=== PATIENT | female | born 1950 | race Caucasian/White ===

== ENCOUNTER → 2016-08-06 | Outpatient (CLI) | payer MEDICARE, MEDICAID | END | disposition home or self-care (01) | LOC: YCFC.O 10:44 | PROVIDERS: ATTEND Nurse Practitioner Family | DX: I10 Essential (primary) hypertension (principal); E11.9 Type 2 diabetes mellitus without complications; D64.9 Anemia, unspecified; E78.5 Hyperlipidemia, unspecified ==

== ENCOUNTER → 2016-08-12 | Outpatient (CLI) | payer MEDICARE, OTHER | LOC: MAMMO 09:21 | PROVIDERS: ATTEND Nurse Practitioner Family | DX: Z12.31 Encounter for screening mammogram for malignant neoplasm of breast (principal) ==

== ENCOUNTER 2017-05-27 11:12 | Emergency (ER) | payer OTHER, MEDICAID ==
[2017-05-27] MEDS ORDERED: FUROSEMIDE INJ 40 MG/4 ML VIAL IV ONE (11:43)
--- NOTE | 2017-05-27 12:08 | ED.PDOC ---
History of Present Illness - General Chief Complaint: Cardiovascular Problem Stated Complaint: Shortness of breath Time Seen by Provider: 05/27/17 11:26 - History of Present Illness Initial Comments: 66 Y/O FEMALE, C/O SOB, X 2 WEEKS, INTERMITTENT, WORSE WITH PHYSICAL ACTIVITY, GETTING WORSE, MODERATE. (+) PEDAL EDEMA, OCC COUGH, OCC DIARRHEA, SINUS CONGESTION. DENIES FEVER, CHEST PAIN, NO N/V, NO ABD PAIN. Allergies/Adverse Reactions: Allergies NO KNOWN ALLERGY Allergy (Unverified 09/25/14 15:08) Home Medications: Ambulatory Orders Bisoprolol & Hydrochlorothiazi [Bisoprolol Fumarate/Oneco 10-6.25 mg] 2 tab PO DAILY 09/25/14 Diclofenac Sodium [Diclofenac Sodium Dr] 75 mg PO DAILY 05/27/17 Insulin Lispro [Humalog Kwikpen] 0 units SC QID PRN 05/27/17 Losartan Potassium [Losartan Potassium] 50 mg PO DAILY 05/27/17 Metformin HCl [Metformin HCl] 1,000 mg PO BID 05/27/17 Pravastatin Sodium [Pravastatin Sodium] 20 mg PO DAILY 05/27/17 Review of Systems - Review of Systems Constitutional: Denies: chills, diaphoresis, fever EENTM: States: no symptoms reported Respiratory: States: cough, short of breath. Denies: orthopnea, stridor, wheezing Cardiology: States: edema. Denies: chest pain, palpitations, syncope Gastrointestinal/Abdominal: States: diarrhea. Denies: abdominal pain, constipation, nausea, vomiting Genitourinary: States: no symptoms reported Musculoskeletal: Denies: back pain, joint pain, muscle pain, muscle stiffness, neck pain Skin: States: no symptoms reported Neurological: States: no symptoms reported Endocrine: States: no symptoms reported Hematologic/Lymphatic: States: no symptoms reported Past Medical History (General) - Patient Medical History Hx Seizures: No Hx Stroke: No Hx Asthma: Yes Hx of COPD: Yes Hx Cardiac Disorders: Yes - cholesterol Hx Congestive Heart Failure: No Hx Pacemaker: No Hx Hypertension: Yes Hx Diabetes: Yes Hx MRSA: No - Vaccination History Hx Influenza Vaccination: No Hx Pneumococcal Vaccination: No - Social History Hx Tobacco Use: Yes - Quit 2008 Hx Alcohol Use: Yes Hx Substance Use: No Hx Physical Abuse: No Hx Emotional Abuse: No - Female History Patient : No Family Medical History - Family History Mother Family History: No Known Father Living Status: Hx Family;Other: Possible TB Physical Exam - Physical Exam General Appearance: Alert, No apparent distress Eye Exam: bilateral normal Ears, Nose, Throat: normal ENT inspection, normal pharynx Neck: non-tender, full range of motion, supple, normal inspection Respiratory: chest non-tender, no respiratory distress, no accessory muscle use , other - OCC CRACKLES Cardiovascular/Chest: normal peripheral pulses, regular rate, rhythm, no gallop , no murmur Gastrointestinal/Abdominal: normal bowel sounds, non tender, soft, no organomegaly, no pulsatile mass Back Exam: normal inspection, no CVA tenderness Extremity: normal range of motion, non-tender, pedal edema - +2 Neurologic: video coordinator II-XII nml as tested, no motor/sensory deficits, normal mood/ affect, oriented x 3 Skin Exam: normal color, warm/dry Lymphatic: no adenopathy Progress - Progress Progress: 05/27/17 13:38 DIURESING AFTER LASIX, STILL FEELS SOB. WILL TRANSFER TO - EKG/XRAY/CT EKG: Changed from - 11/24/15, LBBB IS A NEW FINDING Comments: NSR 76X', AQRS: -64, QTc 536, LBBB NSSTT CHANGES Xray Comments: CARDIOMEGALY, INCREASED BVM (PRELIMINARY) - Consult/PCP Time Called: 13:15 Consult/PCP: DR DAVIES ([facility]) Consult Reason/Comments: WILL ACCEPT Departure - Departure Clinical Impression: Left bundle branch block (LBBB) on electrocardiogram Congestive heart failure (CHF) Qualifiers: Congestive heart failure type: systolic Congestive heart failure chronicity: acute Qualified Code(s): I50.21 - Acute systolic (congestive) heart failure Diabetes mellitus Qualifiers: Diabetes mellitus type: type 2 Diabetes mellitus complication status: without complication Disposition: Transfer to Hospital Condition: Good Departure Forms: ED Discharge - Pt. Copy, Patient Portal Self Enrollment Instructions: DI for Chest Pain Referrals: Ese Valencia STUCCO APPLICATOR [Primary Care Provider] - 1-2 Weeks Home Medications: Ambulatory Orders Bisoprolol & Hydrochlorothiazi [Bisoprolol Fumarate/Oneco 10-6.25 mg] 2 tab PO DAILY 09/25/14 Diclofenac Sodium [Diclofenac Sodium Dr] 75 mg PO DAILY 05/27/17 Insulin Lispro [Humalog Kwikpen] 0 units SC QID PRN 05/27/17 Losartan Potassium [Losartan Potassium] 50 mg PO DAILY 05/27/17 Metformin HCl [Metformin HCl] 1,000 mg PO BID 05/27/17 Pravastatin Sodium [Pravastatin Sodium] 20 mg PO DAILY 05/27/17
[2017-05-27] MEDS ORDERED: SODIUM CHLORIDE 0.9% 1000ML 1,000 ML IVS ONE (12:43)
--- NOTE | 2017-05-27 14:32 | RAD ---
EXAM DESCRIPTION: Ankle,Left 3 Views CLINICAL HISTORY: 66 years Female, PAIN, SWELLING COMPARISON: Radiographs of the chest on the same visit. TECHNIQUE: Images AP lateral and patellar sunrise right knee FINDINGS: Significant medial compartment joint space loss with marginal spurs subchondral sclerosis and radiolucency. Lateral joint space is maintained. Also marginal spurs. Minimal medial subluxation of the femur on tibia. Anterior and posterior tibial marginal spurs. Patellofemoral marginal spurs. Mild suprapatellar effusion. No fracture. Otherwise decreased bone density. Posterior vascular calcifications. IMPRESSION: Tricompartmental osteoarthritis affecting the medial compartment more severely than the patellofemoral compartment. Minimal femoral subluxation consistent with internal derangement. Suprapatellar effusion. No fracture. Electronically signed by: Jules Zhang MD 05/27/2017 2:30 PM CDT
--- NOTE | 2017-05-27 14:35 | RAD ---
EXAM DESCRIPTION: Chest,1 View CLINICAL HISTORY: COUGH COMPARISON: 2 view chest x-ray 09/25/2014. TECHNIQUE: PA, lateral views. FINDINGS: Lungs: Mild hyperinflation. Prominent bilateral interstitial markings with no consolidation. Minimal perihilar peribronchial wall thickening. Pleural spaces: No effusion or pneumothorax bilaterally. Heart: Mild cardiomegaly. Pulmonary Vascularity: Not increased. Mediastinum: Not widened. Aorta: Minimal atherosclerotic changes. Bony Thorax/Spine: No acute bony thoracic abnormalities. Disc space narrowing at multiple levels and endplate ridging. IMPRESSION: Emphysematous changes in the lungs with no acute infiltrate. Mild cardiomegaly but pulmonary vascularity shows no congestion. Stable since chest x-ray August 2014. Electronically signed by: Jules Zhang MD 05/27/2017 2:33 PM CDT
[2017-05-27 15:00] VITALS: BP 181/85; TEMP 97.9; O2SAT 93
== END 2017-05-27 14:50 | disposition short-term general hospital (02) ==
LOC: ER 11:12
DX: I44.7 Left bundle-branch block, unspecified (principal); I11.0 Hypertensive heart disease with heart failure; I50.21 Acute systolic (congestive) heart failure; E11.9 Type 2 diabetes mellitus without complications; J44.9 Chronic obstructive pulmonary disease, unspecified; Z87.891 Personal history of nicotine dependence; Z79.4 Long term (current) use of insulin; Z79.899 Other long term (current) drug therapy

== ENCOUNTER → 2017-05-27 | Outpatient (CLI) | payer OTHER, MEDICAID ==
--- NOTE | 2017-05-27 14:40 | RAD ---
EXAM DESCRIPTION: Knee, right, 3 views CLINICAL HISTORY: 66 years Female, PAIN, SWELLING COMPARISON: Radiographs of the chest on the same visit. TECHNIQUE: Images AP lateral and patellar sunrise right knee FINDINGS: Significant medial compartment joint space loss with marginal spurs subchondral sclerosis and radiolucency. Lateral joint space is maintained. Also marginal spurs. Minimal medial subluxation of the femur on tibia. Anterior and posterior tibial marginal spurs. Patellofemoral marginal spurs. Mild suprapatellar effusion. No fracture. Otherwise decreased bone density. Posterior vascular calcifications. IMPRESSION: Tricompartmental osteoarthritis affecting the medial compartment more severely than the patellofemoral compartment. Minimal femoral subluxation consistent with internal derangement. Suprapatellar effusion. No fracture. Electronically signed by: Jules Zhang MD 05/27/2017 2:37 PM CDT
--- NOTE | 2017-05-27 14:44 | RAD ---
EXAM DESCRIPTION: Chest, 2 Views CLINICAL HISTORY: COUGH COMPARISON: 2 view chest x-ray 09/25/2014. TECHNIQUE: PA, lateral views. FINDINGS: Lungs: Mild hyperinflation. Prominent bilateral interstitial markings with no consolidation. Minimal perihilar peribronchial wall thickening. Pleural spaces: No effusion or pneumothorax bilaterally. Heart: Mild cardiomegaly. Pulmonary Vascularity: Not increased. Mediastinum: Not widened. Aorta: Minimal atherosclerotic changes. Bony Thorax/Spine: No acute bony thoracic abnormalities. Disc space narrowing at multiple levels and endplate ridging. IMPRESSION: Emphysematous changes in the lungs with no acute infiltrate. Mild cardiomegaly but pulmonary vascularity shows no congestion. Stable since chest x-ray August 2014. Electronically signed by: Jules Zhang MD 05/27/2017 2:42 PM CDT
== END ==
LOC: YCFC.O 08:13
PROVIDERS: ATTEND Nurse Practitioner Family
DX: M17.11 Unilateral primary osteoarthritis, right knee (principal); R06.02 Shortness of breath; R60.0 Localized edema

== ENCOUNTER → 2017-12-26 | Outpatient (CLI) | payer OTHER, MEDICAID | LOC: YCFC.O 10:37 | PROVIDERS: ATTEND Nurse Practitioner Family | DX: R30.0 Dysuria (principal) ==

== ENCOUNTER → 2018-01-25 | Outpatient (CLI) | payer OTHER, MEDICAID | LOC: YCFC.O 14:14 | PROVIDERS: ATTEND Nurse Practitioner Family | DX: R06.02 Shortness of breath (principal) ==

== ENCOUNTER 2018-03-14 13:36 | Emergency (ER) | payer OTHER, MEDICAID ==
--- NOTE | 2018-03-14 14:13 | RAD ---
EXAM DESCRIPTION: Chest,1 View CLINICAL HISTORY: 67 years Female, dyspnea COMPARISON: Chest radiograph 05/27/2017 TECHNIQUE: Single frontal view of the chest. IMPRESSION: Cardiac silhouette is stably enlarged. Aorta is partially calcified. Lungs appear mildly hyperexpanded. There is mild airspace opacification within the medial right lower lung which may represent pneumonia versus aspiration. No pleural effusion or pneumothorax. Thoracic spondylosis. 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
[2018-03-14] MEDS: NITROGLYCERIN 2% 1 GM UD TOP ONE (14:25)
[2018-03-14] MEDS: ASPIRIN (CHEWABLE) 81 MG TAB PO ONE (14:26)
--- NOTE | 2018-03-14 14:29 | ED.PDOC ---
History of Present Illness - General Chief Complaint: Respiratory Problem Stated Complaint: shortness of breath,chest pressure Time Seen by Provider: 03/14/18 13:47 Source: patient Exam Limitations: no limitations - History of Present Illness Initial Comments: Patient presents with chest pain for 6 hours. It is midsternal and "tight" in nature. It is constant with no particular context. It is worse with sitting up and better with lying down. She has had previous episodes but they were much milder and of shorter duration. The pain is non-radiating and has improved since onset. She also has dyspnea but says that she has had that since receiving 3 stents 9 months ago. She doesn't think that she has had an AMI. No other complaints. Timing/Duration: 4-6 hours Severity: mild Improving Factors: rest Worsening Factors: movement Associated Symptoms: shortness of breath Allergies/Adverse Reactions: Allergies NO KNOWN ALLERGY Allergy (Unverified 09/25/14 15:08) Home Medications: Ambulatory Orders Bisoprolol & Hydrochlorothiazi [Bisoprolol Fumarate/[place]bury 10-6.25 mg] 2 tab PO DAILY 09/25/14 Diclofenac Sodium [Diclofenac Sodium Dr] 75 mg PO BID 05/27/17 Insulin Lispro [Humalog Kwikpen] 0 units SC QID PRN 05/27/17 Losartan Potassium 50 mg PO DAILY 05/27/17 Metformin HCl 1,000 mg PO BID 05/27/17 Pravastatin Sodium 20 mg PO DAILY 05/27/17 Amlodipine Besylate 5 mg PO BEDTIME 03/14/18 Aspirin [Aspirin Regimen Low Dose/] 81 mg PO DAILY 03/14/18 Atorvastatin Calcium 40 mg PO BEDTIME 03/14/18 Carvedilol 25 mg PO BID 03/14/18 Chlorthalidone 12.5 mg PO DAILY 03/14/18 Multiple Vitamin [Multivitamins] 1 cap PO DAILY 03/14/18 Naproxen [Naprosyn] 500 mg PO BID 03/14/18 Ticagrelor [Brilinta] 90 mg PO BID 03/14/18 Review of Systems - Review of Systems Constitutional: States: no symptoms reported EENTM: States: no symptoms reported Respiratory: States: see HPI Cardiology: States: see HPI Gastrointestinal/Abdominal: States: no symptoms reported Genitourinary: States: no symptoms reported Musculoskeletal: States: no symptoms reported Skin: States: no symptoms reported Neurological: States: no symptoms reported Endocrine: States: no symptoms reported Hematologic/Lymphatic: States: no symptoms reported Past Medical History (General) - Patient Medical History Hx Seizures: No Hx Stroke: No Hx Asthma: Yes Hx of COPD: Yes Hx Cardiac Disorders: Yes - cholesterol Hx Congestive Heart Failure: No Hx Pacemaker: No Hx Hypertension: Yes Hx Diabetes: Yes Hx MRSA: No Surgical History: tonsillectomy, Hysterectomy - Vaccination History Hx Influenza Vaccination: Yes Hx Pneumococcal Vaccination: Yes - Social History Hx Tobacco Use: Yes Hx Alcohol Use: Yes Hx Substance Use: No Hx Physical Abuse: No Hx Emotional Abuse: No - Female History Patient : No Family Medical History - Family History Mother Family History: No Known Father Living Status: Hx Family;Other: Possible TB Physical Exam - Physical Exam General Appearance: Alert Eye Exam: bilateral normal Ears, Nose, Throat: hearing grossly normal, normal ENT inspection Neck: non-tender, full range of motion, supple Respiratory: lungs clear, normal breath sounds Cardiovascular/Chest: normal peripheral pulses, regular rate, rhythm, no edema Gastrointestinal/Abdominal: normal bowel sounds, non tender, soft Back Exam: normal inspection, no CVA tenderness Extremity: normal range of motion, non-tender, normal inspection Neurologic: no motor/sensory deficits, alert, normal mood/affect, oriented x 3 Skin Exam: normal color Lymphatic: no adenopathy Progress - Progress Progress: 03/14/18 19:14 Laboratory Tests 03/14/18 03/14/18 03/14/18 14:00 14:00 14:00 WBC 9.1 RBC 3.33 L Hgb 10.0 L Hct 30.1 L MCV 90.4 MCH 30.0 MCHC 33.3 RDW 15.4 H Plt Count 334 MPV 8.1 Absolute Neuts (auto) 6.10 Absolute Lymphs (auto) 1.80 Absolute Monos (auto) 0.90 H Absolute Eos (auto) 0.30 Absolute Basos (auto) 0.10 Neutrophils % 66.5 Lymphocytes % 19.9 L Monocytes % 9.9 H Eosinophils % 3.0 Basophils % 0.7 PT INR PTT (SP) Sodium 137 Potassium 4.5 Chloride 101 Carbon Dioxide 24 Anion Gap 16.5 BUN 29 H Creatinine 0.89 BUN/Creatinine Ratio 32.6 H Random Glucose 174 H Serum Osmolality 283.8 Calcium 9.6 Magnesium Total Bilirubin 0.6 AST 21 ALT 16 Alkaline Phosphatase 56 Creatine Kinase 49 CK-MB (CK-2) 1.2 CK-MB (CK-2) % Not Reportable Troponin I < 0.02 B-Natriuretic Peptide 250.0 H* Serum Total Protein 7.2 Albumin 4.0 Globulin 3.2 Albumin/Globulin Ratio 1.3 03/14/18 03/14/18 03/14/18 14:00 14:00 17:28 WBC RBC Hgb Hct MCV MCH MCHC RDW Plt Count MPV Absolute Neuts (auto) Absolute Lymphs (auto) Absolute Monos (auto) Absolute Eos (auto) Absolute Basos (auto) Neutrophils % Lymphocytes % Monocytes % Eosinophils % Basophils % PT 10.1 INR 1.01 PTT (SP) 31.4 Sodium Potassium Chloride Carbon Dioxide Anion Gap BUN Creatinine BUN/Creatinine Ratio Random Glucose Serum Osmolality Calcium Magnesium 1.5 L 2.2 Total Bilirubin AST ALT Alkaline Phosphatase Creatine Kinase CK-MB (CK-2) CK-MB (CK-2) % Troponin I B-Natriuretic Peptide Serum Total Protein Albumin Globulin Albumin/Globulin Ratio 03/14/18 17:28 WBC RBC Hgb Hct MCV MCH MCHC RDW Plt Count MPV Absolute Neuts (auto) Absolute Lymphs (auto) Absolute Monos (auto) Absolute Eos (auto) Absolute Basos (auto) Neutrophils % Lymphocytes % Monocytes % Eosinophils % Basophils % PT INR PTT (SP) Sodium Potassium Chloride Carbon Dioxide Anion Gap BUN Creatinine BUN/Creatinine Ratio Random Glucose Serum Osmolality Calcium Magnesium Total Bilirubin AST ALT Alkaline Phosphatase Creatine Kinase CK-MB (CK-2) CK-MB (CK-2) % Troponin I < 0.02 B-Natriuretic Peptide Serum Total Protein Albumin Globulin Albumin/Globulin Ratio EKG showed LBBB, no acute ST changes or T wave inversions. Troponins x two were negative. The patient later related that she gets heartburn that feels similar. She was given a GI cocktail and the pain resolved. Care instructions given. E.R. warnings given. Questions were elicited and answered. Patient voiced understanding and agreement with the plan. Departure - Departure Clinical Impression: Chest pain Disposition: Discharge to Home or Self Care Condition: Good Departure Forms: ED Discharge - Pt. Copy, Patient Portal Self Enrollment Instructions: Chest Pain, Chest Pain That Is Not Caused by the Heart (DC), Angina (DC) Diet: other - as per your regular doctor Activity: increase activity as tolerated Referrals: Ese Valencia NP [Primary Care Provider] - 1-2 Weeks Home Medications: Ambulatory Orders Bisoprolol & Hydrochlorothiazi [Bisoprolol Fumarate/[place] 10-6.25 mg] 2 tab PO DAILY 09/25/14 Diclofenac Sodium [Diclofenac Sodium Dr] 75 mg PO BID 05/27/17 Insulin Lispro [Humalog Kwikpen] 0 units SC QID PRN 05/27/17 Losartan Potassium 50 mg PO DAILY 05/27/17 Metformin HCl 1,000 mg PO BID 05/27/17 Pravastatin Sodium 20 mg PO DAILY 05/27/17 Amlodipine Besylate 5 mg PO BEDTIME 03/14/18 Aspirin [Aspirin Regimen Low Dose/] 81 mg PO DAILY 03/14/18 Atorvastatin Calcium 40 mg PO BEDTIME 03/14/18 Carvedilol 25 mg PO BID 03/14/18 Chlorthalidone 12.5 mg PO DAILY 03/14/18 Multiple Vitamin [Multivitamins] 1 cap PO DAILY 03/14/18 Naproxen [Naprosyn] 500 mg PO BID 03/14/18 Ticagrelor [Brilinta] 90 mg PO BID 03/14/18 Additional Instructions: Return to the E.R. immediately if pain returns. Return to the E.R. for any new symptoms such as shortness of breath or light-headedness.
[2018-03-14] MEDS: IPRATROPIUM/ALBUTEROL 3 ML VIAL NEB ONE (14:44)
[2018-03-14] MEDS ORDERED: SODIUM CHLORIDE 0.9% 100ML 100 ML IVPB ONE (15:16)
[2018-03-14] MEDS ORDERED: MAGNESIUM SULFATE INJ 1 GM/2 ML VIAL ONE (15:16)
[2018-03-14] MEDS: MAGNESIUM SULFATE INJ 2 GM in SODIUM CHLORIDE 0.9% 100ML 100 ML IVPB ONE (15:22)
[2018-03-14 16:21] VITALS: TEMP 97.2
[2018-03-14] MEDS ORDERED: ALUM & MAG HYDROX-SIMETHICONE 30 ML UD ONE (18:19)
[2018-03-14] MEDS: ALUM & MAG HYDROX-SIMETHICONE 30 ML, LIDOCAINE VISCOUS 2% 15 ML PO ONE ×2 (18:19)
[2018-03-14] MEDS ORDERED: LIDOCAINE HCL 2% (MOUTH-THROAT) 15 ML UD ONE (18:19)
[2018-03-14 19:36] VITALS: BP 129/84; O2SAT 97
== END 2018-03-14 19:36 | disposition home or self-care (01) ==
LOC: ER 13:36
DX: R07.9 Chest pain, unspecified (principal); I44.7 Left bundle-branch block, unspecified; J44.9 Chronic obstructive pulmonary disease, unspecified; E78.00 Pure hypercholesterolemia, unspecified; I10 Essential (primary) hypertension; E11.9 Type 2 diabetes mellitus without complications; Z79.82 Long term (current) use of aspirin; Z79.899 Other long term (current) drug therapy; Z87.891 Personal history of nicotine dependence; Z79.4 Long term (current) use of insulin
CPT/HCPCS: 36415; 71045; 80053; 82550; 82553; 83735; 83880; 84484; 85025; 85610; 85730; 93005; 94640; J3475; J7050; J7620

== ENCOUNTER 2018-06-02 09:55 | Inpatient (IN) | payer OTHER, MEDICAID ==
--- NOTE | 2018-06-02 11:09 | RAD ---
EXAM DESCRIPTION: Chest,1 View CLINICAL HISTORY: dyspnea COMPARISON: March 14, 2018 IMPRESSION: Single AP portable upright view of the chest shows enlargement of the cardiomediastinal silhouette with prominence of the pulmonary vascularity consistent with congestive heart failure. Lungs are hypoaerated with chronic appearing increased interstitial markings. No pleural effusion or pneumothorax is seen. Electronically signed by: Kurt Castillo MD 06/02/2018 11:06 AM CDT
[2018-06-02] MEDS ORDERED: FUROSEMIDE INJ 100 MG/10 ML VIAL IV ONE (11:34)
[2018-06-02] MEDS ORDERED: FUROSEMIDE INJ 20 MG/2 ML VIAL ONE (11:35)
[2018-06-02] MEDS ORDERED: FUROSEMIDE INJ 40 MG/4 ML VIAL ONE (11:35)
[2018-06-02] MEDS ORDERED: cefTRIAXone SODIUM 1 GM in SODIUM CHL 0.9% 50ML MIN-BAG+ 50 ML IVPB ONE (12:05)
[2018-06-02] MEDS ORDERED: cefTRIAXone SODIUM 1 GM VIAL ONE (12:18)
[2018-06-02] MEDS ORDERED: SODIUM CHL 0.9% 50ML MIN-BAG+ 50 ML IVPB ONE (12:18)
--- NOTE | 2018-06-02 12:53 | ED.PDOC ---
History of Present Illness - General Chief Complaint: General Stated Complaint: sent from [facility] for lower sats and SOB Time Seen by Provider: 06/02/18 10:10 Source: patient, RN notes reviewed, Vital Signs reviewed - History of Present Illness Initial Comments: c/o dyspnea & dysuria for 2 weeks. Went to the clinic today who then referred her here for hypoxia. They also stated that she had a UTI. Timing/Duration: other Severity: moderate Improving Factors: nothing Worsening Factors: other - exertion Associated Symptoms: malaise, shortness of breath, weakness Allergies/Adverse Reactions: Allergies NO KNOWN ALLERGY Allergy (Unverified 09/25/14 15:08) Home Medications: Ambulatory Orders Diclofenac Sodium [Diclofenac Sodium Dr] 75 mg PO BID 05/27/17 Insulin Lispro [Humalog Kwikpen] 0 units SC QID PRN 05/27/17 Losartan Potassium 50 mg PO DAILY 05/27/17 Metformin HCl 1,000 mg PO BID 05/27/17 Amlodipine Besylate 5 mg PO BEDTIME 03/14/18 Aspirin [Aspirin Regimen Low Dose/] 81 mg PO DAILY 03/14/18 Atorvastatin Calcium 40 mg PO BEDTIME 03/14/18 Carvedilol 25 mg PO BID 03/14/18 Chlorthalidone 12.5 mg PO DAILY 03/14/18 Multiple Vitamin [Multivitamins] 1 cap PO DAILY 03/14/18 Naproxen [Naprosyn] 500 mg PO BID 03/14/18 Ticagrelor [Brilinta] 90 mg PO BID 03/14/18 Insulin Detemir [Levemir] 0 unit SUBCU BEDTIME 06/02/18 Review of Systems - Review of Systems Constitutional: States: see HPI. Denies: chills, fever EENTM: States: no symptoms reported Respiratory: States: see HPI, orthopnea, short of breath. Denies: cough Cardiology: States: edema. Denies: chest pain, palpitations Gastrointestinal/Abdominal: States: no symptoms reported Genitourinary: States: see HPI, dysuria Musculoskeletal: States: no symptoms reported Skin: States: no symptoms reported Neurological: States: no symptoms reported Endocrine: States: see HPI Hematologic/Lymphatic: States: no symptoms reported. Denies: blood clots Past Medical History (General) - Patient Medical History Hx Seizures: No Hx Stroke: No Hx Asthma: Yes Hx of COPD: Yes Hx Cardiac Disorders: Yes - cholesterol Hx Congestive Heart Failure: No Hx Pacemaker: No Hx Hypertension: Yes Hx Diabetes: Yes Hx Cancer: No Hx MRSA: No Surgical History: appendectomy, tonsillectomy, Hysterectomy - Vaccination History Hx Influenza Vaccination: Yes Hx Pneumococcal Vaccination: Yes - Social History Hx Tobacco Use: Yes Hx Alcohol Use: Yes Hx Substance Use: No Hx Physical Abuse: No Hx Emotional Abuse: No - Female History Patient is a Female of Child Bearing Age (10 -59 yrs old): No Patient : No Family Medical History - Family History Mother Family History: No Known Father Living Status: Hx Family;Other: Possible TB Physical Exam - Physical Exam General Appearance: Alert, Comfortable, No apparent distress Eye Exam: bilateral normal Ears, Nose, Throat: hearing grossly normal, other - moist mucosa Neck: full range of motion, supple Respiratory: no respiratory distress, rales Cardiovascular/Chest: normal peripheral pulses, regular rate, rhythm, no JVD Gastrointestinal/Abdominal: non tender, soft, no organomegaly Extremity: normal range of motion, normal capillary refill, pedal edema 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 nml as tested, alert, normal mood/affect, oriented x 3 Skin Exam: normal color, warm/dry Progress - Progress Progress: 06/02/18 11:25 Unchanged - Results/Orders Results/Orders: BNP 1230 Troponin normal x 2 - EKG/XRAY/CT EKG: Sinus, LBBB, Unchanged from 03/18 XRAY: chest - pulmonary edema - Consult/PCP Time Called: 11:30 Consult/PCP: Deanna Rivera Departure - Departure Clinical Impression: Urinary tract infection Qualifiers: Urinary tract infection type: site unspecified Hematuria presence: with hematuria Qualified Code(s): N39.0 - Urinary tract infection, site not specified Congestive heart failure (CHF) Qualifiers: Heart failure type: unspecified Heart failure chronicity: acute on chronic Qualified Code(s): I50.9 - Heart failure, unspecified Time of Disposition: 12:52 Disposition: Admit Patient Condition: Fair Home Medications: Ambulatory Orders Diclofenac Sodium [Diclofenac Sodium Dr] 75 mg PO BID 05/27/17 Insulin Lispro [Humalog Kwikpen] 0 units SC QID PRN 05/27/17 Losartan Potassium 50 mg PO DAILY 05/27/17 Metformin HCl 1,000 mg PO BID 05/27/17 Amlodipine Besylate 5 mg PO BEDTIME 03/14/18 Aspirin [Aspirin Regimen Low Dose/] 81 mg PO DAILY 03/14/18 Atorvastatin Calcium 40 mg PO BEDTIME 03/14/18 Carvedilol 25 mg PO BID 03/14/18 Chlorthalidone 12.5 mg PO DAILY 03/14/18 Multiple Vitamin [Multivitamins] 1 cap PO DAILY 03/14/18 Naproxen [Naprosyn] 500 mg PO BID 03/14/18 Ticagrelor [Brilinta] 90 mg PO BID 03/14/18 Insulin Detemir [Levemir] 0 unit SUBCU BEDTIME 06/02/18 Comments: ASSESSMENT: 67 yo female with h/o DM, HTN c/o dyspnea x 2 weeks. No chest pain, fever or cough & has been compliant with her meds. Has had increasing peripheral edema. Exam is consistent with CHF - rales & peripheral edema. Her EKG = LBBB (not new); CXR = pulmonary edema; BNP 1280; troponins normal x 2. PLAN: 1. Lasix 2. Rocephin & urine culture 3. Admit
--- NOTE | 2018-06-02 13:14 | HP ---
SUPERVISING PHYSICIAN: Manny Marcial M.D. CHIEF COMPLAINT: Weakness and shortness of breath. HISTORY OF PRESENT ILLNESS: This is a 67 year-old female patient who has a significant history of congestive heart failure. She is a patient of Dr. Barboza who has had an approximately 2 weeks complaints of weakness and dizziness as well as shortness of breath. Actually yesterday she and her went to [place] and by the time she got home it progressed that she felt she needed to come into the hospital today. She saw Dr. Barboza, her medical equipment sales, on 05/17/18. She has had a past history of stents about a year ago and she is supposed to have a cardiac catheterization next week per Dr. Barboza and Dr. Dias in [place]. She also had some complaints of nausea without vomiting. She came to the Emergency Room and her initial BNP was 1280. WBCs were 7100 with hemoglobin 10.5, hematocrit 32. Sodium 128, potassium 4.8, chloride 96, carbon dioxide 21, BUN 24, creatinine 0.85. Blood sugar was 213. She had 2 troponins done in the Emergency Room and they were both 0.02. Urinalysis showed a significant urinary tract infection with greater than 300 urine protein, small amount of urine blood, moderate urine leukocyte esterase. Urine RBCs were obscured by WBCs, urine WBCs were too numerous to count and 3+ urine bacteria. Chest x-ray showed single AP portable upright view of the chest shows enlargement of the cardiomediastinal silhouette with prominence of the pulmonary vasculature consistent with CHF. Lungs are hypoaerated with chronic appearing increased interstitial markings. No pleural effusion or pneumothorax seen. She was given Lasix in the Emergency Room as well as some Rocephin for the UTI. I was called for hospital admission. PAST MEDICAL HISTORY: 1. Type 2 diabetes mellitus with poor medical compliance as she stopped her long acting insulin on her own as well as her GLP-1. She does continue to take her Metformin and her sliding scale short acting insulin. 2. Hyperlipidemia. 3. Chronic anemia. 4. Essential hypertension. 5. Congestive heart failure with combined diastolic/systolic etiology. Her last echocardiogram showed an ejection fraction of 29%. 6. Left bundle branch block. 7. Gastroesophageal reflux disease. 8. Chronic knee pain. PAST SURGICAL HISTORY: 1. Appendectomy. 2. Tonsillectomy. 3. Hysterectomy. 4. Cardiac stents in May of 2017. HOME MEDICATIONS: 1. Amlodipine. 2. Atorvastatin. 3. Brilinta. 4. Carvedilol. 5. Chlorthalidone. 6. Diclofenac. 7. Humalog insulin per sliding scale. 8. Levemir insulin, unknown dosing as the patient does not take. 9. Losartan. 10. Metformin. 11. Naprosyn. 12. Nitroglycerin. 13. Triamcinolone topical ointment. ALLERGIES: NO KNOWN DRUG ALLERGIES. SOCIAL HISTORY: She is . She has 3 children. She lives in [place]. She has a past history of cigarette smoking of approximately 1 pack per day but she quit in 2009. She denies any ETOH or illicit drug use. REVIEW OF SYSTEMS: GENERAL: Positive for fatigue. Negative for chills, fever or weight changes. HEENT: Negative for sinus symptoms, ear pain, vision changes or sore throat. RESPIRATORY: Positive for orthopnea, shortness of breath. Negative for cough. CARDIOLOGY: Negative for chest pain, palpitations. GASTROINTESTINAL: Negative for nausea, vomiting, diarrhea, constipation. GENITOURINARY: Positive for dysuria. Negative for hematuria or polyuria. MUSCULOSKELETAL: Negative for chronic back pain or arthralgias. SKIN: Negative for lesions or rashes. NEUROLOGIC: Positive for dizziness. Negative for headaches or seizures. EXTREMITIES: Positive for pedal edema. PHYSICAL EXAMINATION: VITAL SIGNS: Temperature 98.4, heart rate 64, blood pressure 146/96, respiratory rate 20, O2 sat 91% on 1.5 liters nasal cannula. GENERAL: This is a 67 year-old female patient who is sitting up in her hospital bed. She is in no acute distress. HEENT: Normocephalic and atraumatic. Pupils are equal and reactive. Oropharynx is clear. NECK: Supple without mass. There is no discernible jugular venous distention. RESPIRATORY: A few scattered crackles throughout. CHEST: There is equal rise and fall of the chest with inspiration and expiration. CARDIOVASCULAR: Regular rate and rhythm. GASTROINTESTINAL: Abdomen is soft, nondistended, non-tender. Bowel sounds are positive. EXTREMITIES: No cyanosis or clubbing. She does have a trace of pedal edema. NEUROLOGIC: She is awake, alert and oriented times three. Cranial nerves II- XII are grossly intact. SKIN: Warm and dry. LABORATORY: Labs and films are as per the History of Present Illness. ASSESSMENT: 1. Acute exacerbation of congestive heart failure with an admitting BNP of 1280. Her CHF is diastolic and systolic in etiology with an ejection fraction of 29% per her last echocardiogram. She is followed by Dr. Barboza, medical equipment sales in [place]. 2. Urinary tract infection. 3. Diabetes mellitus with poor compliance. 4. Hyponatremia. 5. History of coronary artery disease with a left bundle branch block. 6. Gastroesophageal reflux disease. 7. Hyperlipidemia. 8. Bilateral chronic knee pain. 9. History of hypertension on beta luma, ARB and calcium channel luma. PLAN: We will admit the patient to the hospital. She has been placed on the CHF guidelines. Presently she is on a beta luma and an ARB, and we will continue her home medications. I put her on sliding scale short-acting insulin. We discussed at length the difference between long-acting and short-acting insulin, so I will put her on 10 units of Levemir tonight and we will increase that based on her morning blood glucose. I have also ordered a hemoglobin A1c. She has scheduled IV Lasix and will need to wean that off and go to her routine Lasix dosing. Her home medications have been restarted. There was a question by Pharmacy that the patient was on a very low dose of Brilinta as she takes a half of a 90 mg tablet b.i.d. which is 45 mg b.i.d. and the recommended dosing is 60 plus a baby aspirin. Also contraindications with her being on Naprosyn and Diclofenac. I spoke with the patient and she had already talked to [facility] Christine, and they discussed that she had to stop one, and she will stop her Diclofenac. I have ordered lab and a chest x-ray in the morning. Will continue to monitor closely and follow as needed. #[id number] MTDD
[2018-06-02] MEDS ORDERED: SODIUM CHLORIDE 0.9% (FLUSH) 10 ML SYG IV PRN (15:20)
[2018-06-02] MEDS ORDERED: NITROGLYCERIN 0.4 MG 25 EA TAB SL PRN (15:20)
[2018-06-02] MEDS ORDERED: GLUCAGON INJ 1 MG VIAL SUBCU PRN (15:29)
[2018-06-02] MEDS ORDERED: DEXTROSE 50% 25 GM/50 ML SYG IV PRN (15:29)
[2018-06-02] MEDS: IV SET AND CAP CHANGE INJ INJ SCH (15:46)
[2018-06-02] MEDS: FUROSEMIDE INJ 40 MG/4 ML VIAL IV SCH (16:45)
[2018-06-02] MEDS: INSULIN LISPRO 100 UNITS/ML PEN SUBCU SCH ×2 (16:45→21:40)
[2018-06-02] MEDS ORDERED: INSULIN DETEMIR 100 UNITS/ML PEN SUBCU SCH (21:00)
[2018-06-02] MEDS: TICAGRELOR PO SCH (21:00)
[2018-06-02] MEDS: metFORMIN HCL 500 MG TAB PO SCH (21:39)
[2018-06-02] MEDS: ATORVASTATIN 20 MG TAB PO SCH (21:39)
[2018-06-02] MEDS: CARVEDILOL 12.5 MG TAB PO SCH (21:39)
[2018-06-02] MEDS: DICLOFENAC SODIUM 75 MG TAB PO SCH (21:39)
[2018-06-02] MEDS: amLODIPine BESYLATE 5 MG TAB PO SCH (21:40)
[2018-06-02] MEDS: ENOXAPARIN SODIUM 40 MG/0.4 ML SYG SUBCU SCH (21:43)
[2018-06-02] MEDS: SODIUM CHLORIDE 0.9% (FLUSH) 10 ML SYG IV SCH (21:43)
[2018-06-03] MEDS: PANTOPRAZOLE SODIUM IV 40 MG VIAL IV SCH (05:58)
--- NOTE | 2018-06-03 06:48 | RAD ---
Chest 2 view on 06/03/2018 CLINICAL INDICATION: CHF COMPARISON: 06/02/2018 FINDINGS: There is mild elevation of the right hemidiaphragm. Cardiomegaly is noted. There has been mild improvement in bilateral interstitial opacities likely improved edema. Vascular calcification is noted in the aorta. Hilar and mediastinal contours are within normal limits. IMPRESSION: Findings most consistent with mild improvement in changes of CHF. Electronically signed by: Bandar Phillips 06/03/2018 6:45 AM CDT
[2018-06-03] MEDS ORDERED: SODIUM CHL 0.9% 50ML MIN-BAG+ 50 ML IVPB ONE (07:19)
[2018-06-03] MEDS ORDERED: cefTRIAXone SODIUM 1 GM VIAL ONE (07:19)
[2018-06-03] MEDS: INSULIN LISPRO 100 UNITS/ML PEN SUBCU SCH ×4 (07:40→21:18)
[2018-06-03] MEDS: NAPROXEN 250 MG TAB PO SCH (08:35)
[2018-06-03] MEDS: DICLOFENAC SODIUM 75 MG TAB PO SCH ×2 (08:36→21:16)
[2018-06-03] MEDS: metFORMIN HCL 500 MG TAB PO SCH ×2 (08:36→21:16)
[2018-06-03] MEDS: CHLORTHALIDONE 25 MG TAB PO SCH (08:36)
[2018-06-03] MEDS: LOSARTAN POTASSIUM 100 MG TAB PO SCH (08:37)
[2018-06-03] MEDS: cefTRIAXone SODIUM 1 GM in SODIUM CHL 0.9% 50ML MIN-BAG+ 50 ML IVPB SCH (08:37)
[2018-06-03] MEDS: FUROSEMIDE INJ 40 MG/4 ML VIAL IV SCH ×2 (08:37→16:40)
[2018-06-03] MEDS: NITROGLYCERIN 2% 1 GM UD TOP SCH ×3 (08:38→15:28)
[2018-06-03] MEDS: CARVEDILOL 12.5 MG TAB PO SCH ×2 (08:42→21:16)
[2018-06-03] MEDS: SODIUM CHLORIDE 0.9% (FLUSH) 10 ML SYG IV SCH ×2 (08:43→21:17)
[2018-06-03] MEDS: TICAGRELOR PO SCH (08:43)
[2018-06-03] MEDS ORDERED: MAGNESIUM SULFATE PREMIX 2GM 2 GM in PREMIX BAG 1 BAG IVPB ONE (10:27)
[2018-06-03] MEDS ORDERED: MAGNESIUM SULFATE PREMIX 2GM 50 ML IVPB ONE (11:13)
--- NOTE | 2018-06-03 17:58 | PN ---
DATE: 06/03/18 SUPERVISING PHYSICIAN: Arnold Holman M.D. SUBJECTIVE: The patient is sitting up on the side of her bed talking to her and daughter. They had several questions for me but at this time she denies any nausea, vomiting or chest pain. She does have some shortness of breath but it has improved and the swelling to her legs has improved. We discussed at length her diabetes and her treatment plan as well as did CHF teaching. OBJECTIVE: VITAL SIGNS: Temperature 97.5, heart rate 69, blood pressure 116/87, respiratory rate 16, O2 sat 97% on 2 liters nasal cannula. I's and O's show a negative balance of 2600 mL. RESPIRATORY: A few scattered crackles at the apices. Lower lung rodriguez are fairly clear to auscultation. CARDIAC: Regular rate and rhythm. GASTROINTESTINAL: Abdomen is soft, nondistended, non-tender. EXTREMITIES: No clubbing, cyanosis or edema. NEUROLOGIC: She is awake, alert and oriented times three. LABORATORY: WBCs are 8.6, hemoglobin 9.6 and 29.5. Sodium 131, potassium 4.2, chloride 95, carbon dioxide 24, BUN 29, creatinine 1.32. Blood sugars have run between 140 and 197. Hemoglobin A1c is 7.1, magnesium 1.5. Urine culture is pending. All other labs and films have been reviewed via the EMR. ASSESSMENT: 1. Acute exacerbation of congestive heart failure with an admitting BNP of 1280. Her CHF is diastolic and systolic in etiology with an ejection fraction of 29% per her last echocardiogram. She is followed by Dr. 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 2. Urinary tract infection. 3. Diabetes mellitus with poor compliance. 4. Hyponatremia. 5. History of coronary artery disease with a left bundle branch block. 6. Gastroesophageal reflux disease. 7. Hyperlipidemia. 8. Bilateral chronic knee pain. 9. History of hypertension on beta luma, ARB and calcium channel luma. 10. Mild renal insufficiency most likely due to diuretics, most likely prerenal azotemia. Her baseline creatinine is about 1, but it has been as high as 1.5. PLAN: We will continue present supportive care. Will continue with her present sliding scale short acting insulin as well as 10 units of Levemir at night, and monitor her sugars. I have also done magnesium replacement. I have discontinued her IV Lasix 40 mg b.i.d. and changed it to p.o. Lasix at 20 mg b.i.d. Will need to continue to watch her kidney function. Will continue to monitor closely and follow as needed. #[id number] [facility]
[2018-06-03] MEDS: amLODIPine BESYLATE 5 MG TAB PO SCH (21:15)
[2018-06-03] MEDS: TEMAZEPAM 15 MG CAP PO PRN (21:15)
[2018-06-03] MEDS: ATORVASTATIN 20 MG TAB PO SCH (21:16)
[2018-06-03] MEDS: ENOXAPARIN SODIUM 40 MG/0.4 ML SYG SUBCU SCH (21:17)
[2018-06-03] MEDS: INSULIN DETEMIR 100 UNITS/ML PEN SUBCU SCH (21:19)
[2018-06-03] MEDS: NON-FORMULARY MEDICATION 1 EA MIS (Ticagrelor [Brilinta] 90 MG) PO SCH (21:20)
[2018-06-04] MEDS: PANTOPRAZOLE SODIUM IV 40 MG VIAL IV SCH (06:54)
[2018-06-04] MEDS ORDERED: SODIUM CHL 0.9% 50ML MIN-BAG+ 50 ML IVPB ONE (07:00)
[2018-06-04] MEDS ORDERED: cefTRIAXone SODIUM 1 GM VIAL ONE (07:01)
[2018-06-04] MEDS ORDERED: FUROSEMIDE 40 MG TAB ONE (07:01)
--- NOTE | 2018-06-04 07:04 | RAD ---
Chest 2 view on 06/04/2018 CLINICAL INDICATION: CHF COMPARISON: 06/03/2018 FINDINGS: There is mild elevation of the right hemidiaphragm. Cardiomegaly is noted. There has been slight improvement in bilateral interstitial opacities suggesting improved edema. Vascular calcification is noted in the aorta. Lungs are otherwise clear. IMPRESSION: Further improvement in changes of CHF. Electronically signed by: Bandar Phillips 06/04/2018 7:01 AM CDT
[2018-06-04] MEDS: INSULIN LISPRO 100 UNITS/ML PEN SUBCU SCH ×4 (07:13→21:03)
[2018-06-04] MEDS: DICLOFENAC SODIUM 75 MG TAB PO SCH ×2 (08:32→21:01)
[2018-06-04] MEDS: metFORMIN HCL 500 MG TAB PO SCH ×2 (08:33→21:02)
[2018-06-04] MEDS: NAPROXEN 250 MG TAB PO SCH (08:33)
[2018-06-04] MEDS: CHLORTHALIDONE 25 MG TAB PO SCH (08:33)
[2018-06-04] MEDS: LOSARTAN POTASSIUM 100 MG TAB PO SCH (08:34)
[2018-06-04] MEDS: CARVEDILOL 12.5 MG TAB PO SCH ×2 (08:34→21:02)
[2018-06-04] MEDS: SODIUM CHLORIDE 0.9% (FLUSH) 10 ML SYG IV SCH ×2 (08:35→21:04)
[2018-06-04] MEDS: cefTRIAXone SODIUM 1 GM in SODIUM CHL 0.9% 50ML MIN-BAG+ 50 ML IVPB SCH (08:35)
[2018-06-04] MEDS: NON-FORMULARY MEDICATION 1 EA MIS (Ticagrelor [Brilinta] 90 MG) PO SCH ×2 (08:36→21:04)
[2018-06-04] MEDS: NITROGLYCERIN 2% 1 GM UD TOP SCH ×2 (08:46→15:03)
[2018-06-04] MEDS ORDERED: FUROSEMIDE 40 MG TAB PO SCH (09:00)
[2018-06-04] MEDS: ATORVASTATIN 20 MG TAB PO SCH (21:01)
[2018-06-04] MEDS: ENOXAPARIN SODIUM 40 MG/0.4 ML SYG SUBCU SCH (21:01)
[2018-06-04] MEDS: amLODIPine BESYLATE 5 MG TAB PO SCH (21:02)
[2018-06-04] MEDS: TEMAZEPAM 15 MG CAP PO PRN (21:02)
[2018-06-04] MEDS: INSULIN DETEMIR 100 UNITS/ML PEN SUBCU SCH (21:03)
--- NOTE | 2018-06-04 21:14 | PN ---
DATE: 06/04/18 SUPERVISING PHYSICIAN: Arnold Holman M.D. SUBJECTIVE: The patient is sitting on the side of her bed. Still feels somewhat short of breath with exertion, but it has improved greatly. Denies chest pain, although she did say that she did not realize she had previously had some tightness across her chest but feels much better when she has the Nitro paste. Otherwise denies nausea, vomiting or diarrhea. OBJECTIVE: Temperature 97.6, heart rate 66, blood pressure 137/83, respiratory rate 20, O2 sat 98% on room air. RESPIRATORY: Very few fine scattered crackles in the upper lung rodriguez, otherwise clear to auscultation. CARDIAC: Regular rate and rhythm. GASTROINTESTINAL: Abdomen is soft, nondistended, non-tender. Bowel sounds are positive. EXTREMITIES: No clubbing, cyanosis or edema. NEUROLOGIC: She is awake, alert and oriented times three. LABORATORY: WBCs 6.9, hemoglobin 9.3, hematocrit 28.5. Blood sugars have run between 138 and 173. Sodium 128 with potassium 4.6, chloride 91, BUN 34, creatinine 1.31. Serum osmolality 266.9, magnesium 1.8. Urine culture is still pending. Chest x-ray shows further improvement in changes of CHF. All other labs and films have been reviewed via the EMR. ASSESSMENT: 1. Acute exacerbation of congestive heart failure with an admitting BNP of 1280. Her CHF is diastolic and systolic in etiology with an ejection fraction of 29% per her last echocardiogram. She is followed by Dr. Barboza, high school art teacher in [place]. 2. Urinary tract infection. 3. Diabetes mellitus with poor compliance. 4. Hyponatremia. 5. History of coronary artery disease with a left bundle branch block. 6. Gastroesophageal reflux disease. 7. Hyperlipidemia. 8. Bilateral chronic knee pain. 9. History of hypertension on beta luma, ARB and calcium channel luma. 10. Mild renal insufficiency most likely due to diuretics, most likely prerenal azotemia. Her baseline creatinine is about 1, but it has been as high as 1.5. PLAN: We will continue present supportive care. Prior to admission she had not been on any Lasix and I have changed her to 20 of Lasix daily. She is also on Chlorthalidone. I have changed her Nitro paste to 0.2 mg [address] patch. If Dr. Barboza, high school art teacher, is in clinic on Tuesday it might be beneficial for him to be consulted as she is supposed to see him on Tuesday for a cardiac catheterization. I have ordered routine lab for in the morning as well as a chest x-ray. Will continue to follow closely and follow as needed. #[id number] MTDD
[2018-06-05] MEDS: PANTOPRAZOLE SODIUM IV 40 MG VIAL IV SCH (06:29)
[2018-06-05] MEDS ORDERED: SODIUM CHL 0.9% 50ML MIN-BAG+ 50 ML IVPB ONE (06:54)
[2018-06-05] MEDS ORDERED: cefTRIAXone SODIUM 1 GM VIAL ONE (06:54)
[2018-06-05] MEDS: INSULIN LISPRO 100 UNITS/ML PEN SUBCU SCH ×4 (07:16→21:16)
--- NOTE | 2018-06-05 07:22 | RAD ---
EXAM DESCRIPTION: XR CHEST 2 VIEWS CLINICAL HISTORY: Congestive heart failure COMPARISON: 06/04/2018 TECHNIQUE: PA/lateral FINDINGS: Cardiomegaly. Slight increase in vascular congestion and interstitial markings compatible with slightly worsened edema. No dense alveolar consolidation.. No pleural effusion IMPRESSION: Cardiomegaly with vascular congestion and increased interstitial markings compatible with interstitial edema/pneumonitis Electronically signed by: Naresh Pollard MD 06/05/2018 7:19 AM CDT
[2018-06-05] MEDS: LOSARTAN POTASSIUM 100 MG TAB PO SCH (08:22)
[2018-06-05] MEDS: metFORMIN HCL 500 MG TAB PO SCH ×2 (08:22→21:14)
[2018-06-05] MEDS: DICLOFENAC SODIUM 75 MG TAB PO SCH ×2 (08:22→21:14)
[2018-06-05] MEDS: CHLORTHALIDONE 25 MG TAB PO SCH (08:22)
[2018-06-05] MEDS: CARVEDILOL 12.5 MG TAB PO SCH ×2 (08:22→21:14)
[2018-06-05] MEDS: cefTRIAXone SODIUM 1 GM in SODIUM CHL 0.9% 50ML MIN-BAG+ 50 ML IVPB SCH (08:23)
[2018-06-05] MEDS: FUROSEMIDE INJ 20 MG/2 ML VIAL IV SCH (08:23)
[2018-06-05] MEDS: NON-FORMULARY MEDICATION 1 EA MIS (Ticagrelor [Brilinta] 90 MG) PO SCH ×2 (08:23→21:15)
[2018-06-05] MEDS: NAPROXEN 250 MG TAB PO SCH (08:23)
[2018-06-05] MEDS: SODIUM CHLORIDE 0.9% (FLUSH) 10 ML SYG IV SCH ×2 (08:27→21:26)
[2018-06-05] MEDS: NITROGLYCERIN 0.2 MG/HR PATCH TD SCH (08:34)
[2018-06-05] MEDS ORDERED: MAGNESIUM SULFATE PREMIX 2GM 2 GM in PREMIX BAG 1 BAG IVPB ONE (08:47)
[2018-06-05] MEDS ORDERED: MAGNESIUM SULFATE PREMIX 2GM 50 ML IVPB ONE (08:58)
[2018-06-05] MEDS: IV SET AND CAP CHANGE INJ INJ SCH (15:17)
--- NOTE | 2018-06-05 20:30 | PN ---
DATE: 06/05/18 SUPERVISING PHYSICIAN: Naresh Purcell M.D. SUBJECTIVE: The patient is resting in bed. She still feels a little short of breath and she says after the Nitro patch was applied she noted that her shortness of breath was not quite as bad. She has had no nausea or vomiting. No chest pain. She has been afebrile. OBJECTIVE: VITAL SIGNS: Temperature 97.6, pulse 66, blood pressure 131/86, respirations 16, satting 100% on nasal cannula at rest on 2 liters. Weight is 98.6 kg. CHEST: Lung sounds are diminished towards the bases bilaterally without any wheezing or rhonchi. HEART: Regular rate and rhythm. ABDOMEN: Soft, non-tender. Positive bowel sounds. EXTREMITIES: With a trace of edema. NEUROLOGIC: She is alert and oriented times three. LABORATORY: White count is showing to be stable at 6,300 with hemoglobin 9.4, hematocrit 28.7, platelet count 245,000. Differential shows to be without a left shift. BNP down to 737 from admission of 1280. Chemistry shows sodium 130, potassium 4.2, BUN 32, creatinine 0.97, magnesium 1.7. Blood sugars range between 124 and 154. MICROBIOLOGY: Urine cultures pending. RADIOLOGY: Chest x-ray today per radiology interpretation showed cardiomegaly with vascular congestion and increased interstitial markings compatible with interstitial edema/pneumonitis. ASSESSMENT: 1. Acute exacerbation of congestive heart failure with an admitting BNP of 1280. Her CHF is diastolic and systolic in etiology with an ejection fraction of 29% per her last echocardiogram. She is followed by Dr. 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 She has a consult with Dr. Barboza tomorrow. 2. Urinary tract infection, culture pending. 3. Diabetes mellitus with poor compliance, showing better control with sliding scale. 4. Hyponatremia, persistent, likely due to loop diuretics. 5. History of coronary artery disease with a left bundle branch block. 6. Gastroesophageal reflux disease. 7. Hyperlipidemia. 8. Bilateral chronic knee pain. 9. History of hypertension on beta luma, ARB and calcium channel luma. 10. Mild renal insufficiency most likely due to diuretics, most likely prerenal azotemia. Her baseline creatinine is about 1, but it has been as high as 1.5. PLAN: Will continue current plan of care at this point with Lasix p.o. as well as Chlorthalidone. She is to see Dr. Barboza in the morning in consultation. Anticipate hoping to be able to discharge after that consultation. Will continue the Nitropaste at 0.2 mg every 24 hours until she is seen in consultation. Until she can transition to outpatient management, we will plan to repeat labs in the morning as well as a repeat chest x-ray, and continue to monitor and treat as needed. #[id number] [facility]
[2018-06-05] MEDS ORDERED: REMOVE OLD PATCH TOP SCH (21:00)
[2018-06-05] MEDS: ENOXAPARIN SODIUM 40 MG/0.4 ML SYG SUBCU SCH (21:14)
[2018-06-05] MEDS: amLODIPine BESYLATE 5 MG TAB PO SCH (21:14)
[2018-06-05] MEDS: ATORVASTATIN 20 MG TAB PO SCH (21:14)
[2018-06-05] MEDS: INSULIN DETEMIR 100 UNITS/ML PEN SUBCU SCH (21:16)
[2018-06-05] MEDS: TEMAZEPAM 15 MG CAP PO PRN (22:18)
[2018-06-06] MEDS: PANTOPRAZOLE SODIUM IV 40 MG VIAL IV SCH (06:03)
[2018-06-06] MEDS: INSULIN LISPRO 100 UNITS/ML PEN SUBCU SCH ×2 (07:40→12:45)
--- NOTE | 2018-06-06 08:00 | RAD ---
EXAM: XR Chest, 2 Views CLINICAL HISTORY: The patient is 67 years old and is Female; chf exacerbation TECHNIQUE: Frontal and lateral views of the chest. COMPARISON: Chest radiograph from 06/05/2018 FINDINGS: LUNGS: There is mild diffuse interstitial prominence, which appears slightly improved especially on the left compared to the prior exam. No focal consolidation. PLEURAL SPACE: Unremarkable. No pneumothorax. HEART: Stable moderate enlargement of the cardiac silhouette. MEDIASTINUM: Unremarkable. BONES/JOINTS: No acute osseous findings. VASCULATURE: Atherosclerotic calcifications within the aorta. IMPRESSION: Apparent slight interval improvement in interstitial edema. Electronically signed by: Chantelle Felix MD 06/06/2018 7:57 AM CDT
[2018-06-06] MEDS ORDERED: SODIUM CHL 0.9% 50ML MIN-BAG+ 50 ML IVPB ONE (09:19)
[2018-06-06] MEDS ORDERED: cefTRIAXone SODIUM 1 GM VIAL ONE (09:20)
[2018-06-06] MEDS: LOSARTAN POTASSIUM 100 MG TAB PO SCH (09:28)
[2018-06-06] MEDS: NITROGLYCERIN 0.2 MG/HR PATCH TD SCH (09:28)
[2018-06-06] MEDS: metFORMIN HCL 500 MG TAB PO SCH (09:28)
[2018-06-06] MEDS: CARVEDILOL 12.5 MG TAB PO SCH (09:29)
[2018-06-06] MEDS: CHLORTHALIDONE 25 MG TAB PO SCH (09:29)
[2018-06-06] MEDS: cefTRIAXone SODIUM 1 GM in SODIUM CHL 0.9% 50ML MIN-BAG+ 50 ML IVPB SCH (09:30)
[2018-06-06] MEDS: FUROSEMIDE INJ 20 MG/2 ML VIAL IV SCH (09:30)
[2018-06-06] MEDS: SODIUM CHLORIDE 0.9% (FLUSH) 10 ML SYG IV SCH (09:31)
[2018-06-06] MEDS: NAPROXEN 250 MG TAB PO SCH (09:35)
[2018-06-06] MEDS: NON-FORMULARY MEDICATION 1 EA MIS (Ticagrelor [Brilinta] 90 MG) PO SCH (09:36)
[2018-06-06] MEDS: DICLOFENAC SODIUM 75 MG TAB PO SCH (09:38)
[2018-06-06 10:03] VITALS: BP 156/89; TEMP 97.7; O2SAT 98
--- NOTE | 2018-06-12 13:41 | DS ---
SUPERVISING PHYSICIAN: Naresh Purcell MD ADMISSION DIAGNOSIS: 1. Acute exacerbation of congestive heart failure with an admitting BNP of 1280. Her CHF is diastolic and systolic in etiology with an ejection fraction of 29% per her last echocardiogram. She is followed by Dr. Barboza, territory manager general sales in [place]. 2. Urinary tract infection. 3. Diabetes mellitus with poor compliance. 4. Hyponatremia. 5. History of coronary artery disease with a left bundle branch block. 6. Gastroesophageal reflux disease. 7. Hyperlipidemia. 8. Bilateral chronic knee pain. 9. History of hypertension on beta luma, ARB and calcium channel luma. DISCHARGE DIAGNOSIS: 1. Acute exacerbation of congestive heart failure with an admitting BNP of 1280. Her CHF is diastolic and systolic in etiology with an ejection fraction of 29% per her last echocardiogram. She is followed by Dr. Barboza, territory manager general sales in [place]. She has a consult with Dr. Barboza tomorrow. 2. Urinary tract infection secondary to Escherichia coli. 3. Diabetes mellitus with poor compliance, showing better control with sliding scale. 4. Hyponatremia, persistent, likely due to loop diuretics. 5. History of coronary artery disease with a left bundle branch block. 6. Gastroesophageal reflux disease. 7. Hyperlipidemia. 8. Bilateral chronic knee pain. 9. History of hypertension on beta luma, ARB and calcium channel luma. 10. Mild renal insufficiency most likely due to diuretics, most likely prerenal azotemia. Her baseline creatinine is about 1, but it has been as high as 1.5. REASON FOR HOSPITALIZATION: This is a 67 year-old female patient who has a significant history of congestive heart failure. She is a patient of Dr. Barboza who has had an approximately 2 weeks complaints of weakness and dizziness as well as shortness of breath. Actually yesterday she and her went to [place] and by the time she got home it progressed that she felt she needed to come into the hospital today. She saw Dr. Barboza, her territory manager general sales, on 05/17/18. She has had a past history of stents about a year ago and she is supposed to have a cardiac catheterization next week per Dr. Barboza and Dr. Dias in [place]. She also had some complaints of nausea without vomiting. She came to the Emergency Room and her initial BNP was 1280. WBCs were 7100 with hemoglobin 10.5, hematocrit 32. Sodium 128, potassium 4.8, chloride 96, carbon dioxide 21, BUN 24, creatinine 0.85. Blood sugar was 213. She had 2 troponins done in the Emergency Room and they were both 0.02. Urinalysis showed a significant urinary tract infection with greater than 300 urine protein, small amount of urine blood, moderate urine leukocyte esterase. Urine RBCs were obscured by WBCs, urine WBCs were too numerous to count and 3+ urine bacteria. Chest x-ray showed single AP portable upright view of the chest shows enlargement of the cardiomediastinal silhouette with prominence of the pulmonary vasculature consistent with CHF. Lungs are hypoaerated with chronic appearing increased interstitial markings. No pleural effusion or pneumothorax seen. She was given Lasix in the Emergency Room as well as some Rocephin for the UTI. I was called for hospital admission. LABORATORY: White count on admission was 7,100, hemoglobin 10.5, hematocrit 32.0, platelet count 277,000, differential without a left shift. Discharge hemoglobin was stable at 9.4 and hematocrit 28.7 with platelet count 245,000 and white count 6,300. Admission chemistry showed sodium 128, potassium 4.8, BUN 24, creatinine 0.85. Liver functions all within normal limits. BNP elevated at 1280. Troponins were 0.02 x2. BNP did go down to 737 with treatment. Prior to discharge, chemistries showed sodium 130, potassium 4.3, BUN 32, creatinine 1.04. Blood sugars ranged between 137 and 154. Magnesium 1.8. MICROBIOLOGY: Urine culture final results showed E. coli that was sensitive to Ceftin and ceftriaxone, Macrobid, Bactrim and tetracycline, but resistant to fluoroquinolones, amoxicillin and ampicillin. Please see that report for full details. RADIOLOGY: She had a chest x-ray in the Emergency Room prior to admission and per radiologic interpretation of a portable single view chest showed enlargement of the cardiomediastinal silhouette and prominence of the pulmonary vasculature consistent with congestive heart failure. Lungs hypoaerated with chronic appearing increased interstitial markings. Final x-ray done on 06/06/18 showed apparent slight interval improvement in interstitial edema. EKG on admission to the Emergency Room showed sinus rhythm with a left bundle branch block with no evidence of acute injury pattern. HOSPITAL COURSE: Ms. Finney was admitted and started on treatment for acute exacerbation of congestive heart failure. She showed good response to loop diuretics with BNP decreasing through admission. She also had better control of her blood sugars. She was started on treatment for underlying urinary tract infection with Rocephin and final culture results did show E. coli was sensitive to Rocephin. She showed good response to treatment well enough to continue with outpatient management. She was also started on 0.2 Nitro patch which did help relieve her symptoms significantly. PLAN: Ms. Finney was discharged on 06/06/18 with instructions to followup with Dr. Barboza on 06/13/[address] Bobo in 2 weeks. She was to resume her home medications as instructed and told to the return to the hospital should she have any worsening of her symptoms. Diet at discharge was diabetic diet as tolerated. Activity to increase as tolerated. MEDICATIONS AT DISCHARGE: 1. Lasix 20 mg daily, #30. 2. Nitro patch 0.2 mg per hour, 1 transdermally q.24h., #30, no refills. 3. Potassium chloride 10 mEq daily, #30, no refills. CONDITION ON DISCHARGE: Stable and improving. DISPOSITION: The patient was discharged to care of family. #[id number] MTDU
== END 2018-06-06 13:30 | disposition home or self-care (01) | DRG 689 ==
LOC: ER 09:55 → MS 13:12
PROVIDERS: ADMIT Nurse Practitioner Acute Care; ATTEND Nurse Practitioner Family
DX: N39.0 Urinary tract infection, site not specified (principal); I50.43 Acute on chronic combined systolic (congestive) and diastolic (congestive) heart failure; E87.1 Hypo-osmolality and hyponatremia; I11.0 Hypertensive heart disease with heart failure; E11.9 Type 2 diabetes mellitus without complications; I25.10 Atherosclerotic heart disease of native coronary artery without angina pectoris; K21.9 Gastro-esophageal reflux disease without esophagitis; E78.5 Hyperlipidemia, unspecified; G89.29 Other chronic pain; B96.20 Unspecified Escherichia coli [E. coli] as the cause of diseases classified elsewhere; M25.562 Pain in left knee; M25.561 Pain in right knee; T50.1X5A Adverse effect of loop [high-ceiling] diuretics, initial encounter; Y92.009 Unspecified place in unspecified non-institutional (private) residence as the place of occurrence of the external cause; N28.9 Disorder of kidney and ureter, unspecified; Z95.5 Presence of coronary angioplasty implant and graft; Z16.11 Resistance to penicillins; Z16.23 Resistance to quinolones and fluoroquinolones; T38.3X6A Underdosing of insulin and oral hypoglycemic [antidiabetic] drugs, initial encounter; Z91.128 Patient's intentional underdosing of medication regimen for other reason; D64.9 Anemia, unspecified; I44.7 Left bundle-branch block, unspecified; Z79.4 Long term (current) use of insulin; Z79.1 Long term (current) use of non-steroidal anti-inflammatories (NSAID); Z79.899 Other long term (current) drug therapy; Z87.891 Personal history of nicotine dependence

== ENCOUNTER 2018-08-22 14:23 | Inpatient (IN) | payer MEDICARE, MEDICAID ==
[2018-08-22] MEDS ORDERED: IPRATROPIUM/ALBUTEROL 3 ML VIAL NEB ONE (14:36)
--- NOTE | 2018-08-22 14:54 | RAD ---
Study: Single Frontal Radiograph of the Chest. Indication:shortness of breath Comparison: June 06, 2018 Impression: Cardiomegaly with progressive moderate interstitial edema. Underlying pneumonia not excluded. Follow up recommended. No pleural effusion or pneumothorax. No acute osseous abnormality. Electronically signed by: Gui Pool MD 08/22/2018 2:52 PM CDT
--- NOTE | 2018-08-22 14:56 | ED.PDOC ---
History of Present Illness - General Chief Complaint: Respiratory Problem Stated Complaint: SOB Time Seen by Provider: 08/22/18 14:35 Source: patient, family Exam Limitations: no limitations - History of Present Illness Initial Comments: patient comes in with worsening shortness of breath. Patient has had a difficult time with her breathing over the past year. About a year ago she was told that she was hypoxic and placed on oxygen although she was not quite sure of the source. She states that she was a smoker but quit in 1999 and has not smoked since. She has no breathing treatments at home. However, she did recently get her third set of stents placed for blockage in her coronary arteries. At that time her primary symptoms were chest pain and shortness of breath as well. She denies any diaphoresis, nausea or vomiting. She's had a dry cough but denies any symptoms of illness including fever, chills, productive or purulent sputum, or nasal congestion. Patient has said that she's been very swollen the last several days. Timing/Duration: 7-24 hours Severity: moderate Activities at Onset: rest Possible Cause: frequent episodes, chronic episodes Improving Factors: medication - nitro at home helped a little for a couple of minutes Worsening Factors: movement Associated Symptoms: cough, edema, wheezing Allergies/Adverse Reactions: Allergies NO KNOWN ALLERGY Allergy (Verified 06/02/18 13:34) Home Medications: Ambulatory Orders Diclofenac Sodium [Diclofenac Sodium Dr] 75 mg PO BID 05/27/17 Insulin Lispro [Humalog Kwikpen] 0 units SC ACHS PRN 05/27/17 Losartan Potassium 50 mg PO DAILY 05/27/17 Metformin HCl [Metformin Hydrochloride] 1,000 mg PO BID 05/27/17 Amlodipine Besylate 5 mg PO BEDTIME 03/14/18 Atorvastatin Calcium 40 mg PO BEDTIME 03/14/18 Carvedilol 25 mg PO BID 03/14/18 Chlorthalidone 12.5 mg PO DAILY 03/14/18 Multiple Vitamin [Multivitamins] 1 cap PO DAILY 03/14/18 Naproxen [Naprosyn] 500 mg PO DAILY 03/14/18 Ticagrelor [Brilinta] 90 mg PO BID 03/14/18 Furosemide [Lasix] 20 mg PO DAILY #30 tab 06/06/18 Nitroglycerin Patch 0.2 mg/Hr [Nitro-Dur PATCH 0.2 mg/hour] 1 ea TD Q24H #30 patch 04/09/19 Potassium Chloride [K-Tab] 10 meq PO DAILY #30 tab 06/06/18 Review of Systems - Review of Systems Constitutional: States: malaise. Denies: chills, diaphoresis, fever EENTM: States: no symptoms reported. Denies: eye pain, ear pain, nose congestion, throat pain Respiratory: States: cough, short of breath, wheezing Cardiology: States: chest pain, edema. Denies: palpitations, syncope Gastrointestinal/Abdominal: States: no symptoms reported. Denies: abdominal pain, constipation, diarrhea, nausea, vomiting Past Medical History (General) - Patient Medical History Hx Seizures: No Hx Stroke: No Hx Asthma: Yes Hx of COPD: Yes Hx Cardiac Disorders: Yes - cholesterol Hx Congestive Heart Failure: No Hx Pacemaker: No Hx Hypertension: Yes Hx Diabetes: Yes Hx Cancer: No Hx MRSA: No - Vaccination History Hx Influenza Vaccination: Yes Hx Pneumococcal Vaccination: Yes - Social History Hx Tobacco Use: Yes Hx Alcohol Use: Yes Hx Substance Use: No Hx Physical Abuse: No Hx Emotional Abuse: No - Female History Patient : No Family Medical History - Family History Mother Family History: No Known Father Living Status: Hx Family;Other: Possible TB Physical Exam - Physical Exam General Appearance: Alert, No apparent distress Eyes, Ears, Nose, Throat Exam: PERRL/EOMI, normal ENT inspection, TMs normal, pharynx normal Neck: non-tender, full range of motion, supple, normal inspection Respiratory: decreased breath sounds, wheezing, other - after breathing treatment increased flow and crackles up to upper lobes Cardiovascular/Chest: normal peripheral pulses, regular rate, rhythm, no gallop, no JVD, no murmur Peripheral Pulses: radial,right: 2+, radial,left: 2+ Gastrointestinal/Abdominal: normal bowel sounds, non tender, soft Neurologic: alert, oriented x 3 Progress - Progress Progress: 08/22/18 15:42 breathing treatment helped a little bit and nitro made no difference. Labs, exam after tx, and chest xray consistent with CHF exac. Lasix ordered and patient to be admitted. - Results/Orders Results/Orders: 08/22/18 14:36 SVN/Updraft Therapy .PRN 08/22/18 14:45 EKG STAT Laboratory Results WBC 9.5 K/mm3 (4.8-10.8) 08/22/18 14:50 RBC 3.18 M/mm3 (4.20-5.40) L 08/22/18 14:50 Hgb 9.1 gm/dL (12.0-16.0) L 08/22/18 14:50 Hct 27.5 % (36.0-47.0) L 08/22/18 14:50 MCV 86.6 fl (81.0-99.0) 08/22/18 14:50 MCH 28.5 pg (27.0-31.0) 08/22/18 14:50 MCHC 32.9 g/dL (33.0-37.0) L 08/22/18 14:50 RDW 17.7 % (11.5-14.5) H 08/22/18 14:50 Plt Count 389 K/mm3 (130-400) 08/22/18 14:50 MPV 7.5 fl (7.40-10.4) 08/22/18 14:50 Absolute Neuts (auto) 6.90 K/uL (1.8-6.8) H 08/22/18 14:50 Absolute Lymphs (auto) 1.20 K/uL (1.0-3.4) 08/22/18 14:50 Absolute Monos (auto) 0.90 K/uL (0.2-0.8) H 08/22/18 14:50 Absolute Eos (auto) 0.40 K/uL (0.0-0.4) 08/22/18 14:50 Absolute Basos (auto) 0.20 K/uL (0.0-0.1) H 08/22/18 14:50 Neutrophils % 72.4 % (42.0-78.0) 08/22/18 14:50 Lymphocytes % 12.2 % (20.0-50.0) L 08/22/18 14:50 Monocytes % 9.2 % (2.0-9.0) H 08/22/18 14:50 Eosinophils % 3.8 % (1.0-5.0) 08/22/18 14:50 Basophils % 2.4 % (0.0-2.0) H 08/22/18 14:50 PT 11.4 SECONDS (9.0-10.9) H 08/22/18 14:50 INR 1.14 (0.9-1.15) 08/22/18 14:50 PTT (SP) 32.3 SECONDS (21.8-31.6) H 08/22/18 14:50 Sodium 133 mmol/L (135-145) L 08/22/18 14:50 Potassium 4.1 mmol/L (3.6-5.0) 08/22/18 14:50 Chloride 97 mmol/L (101-111) L 08/22/18 14:50 Carbon Dioxide 24 mmol/L (21-31) 08/22/18 14:50 Anion Gap 16.1 (12-18) 08/22/18 14:50 BUN 21 mg/dL (7-18) H 08/22/18 14:50 Creatinine 0.74 mg/dL (0.6-1.3) 08/22/18 14:50 BUN/Creatinine Ratio 28.4 (10-20) H 08/22/18 14:50 Random Glucose 153 mg/dL (70-105) H 08/22/18 14:50 Serum Osmolality 272.4 mOsm/L (275-295) L 08/22/18 14:50 Calcium 9.5 mg/dL (8.4-10.2) 08/22/18 14:50 Magnesium 1.6 mg/dL (1.8-2.5) L 08/22/18 14:50 Total Bilirubin 1.5 mg/dL (0.2-1.0) H 08/22/18 14:50 AST 16 IU/L (10-42) 08/22/18 14:50 ALT 15 IU/L (10-60) 08/22/18 14:50 Alkaline Phosphatase 62 IU/L (42-121) 08/22/18 14:50 Creatine Kinase 44 IU/L (26-140) 08/22/18 14:50 CK-MB (CK-2) 1.2 ng/mL (0.0-4.4) 08/22/18 14:50 CK-MB (CK-2) % Not Reportable 08/22/18 14:50 Troponin I < 0.02 ng/mL (0.01-0.05) 08/22/18 14:50 B-Natriuretic Peptide 1510.0 pg/ml (0-100) H* 08/22/18 14:50 Serum Total Protein 7.1 gm/dL (6.4-8.2) 08/22/18 14:50 Albumin 3.7 g/dl (3.2-5.5) 08/22/18 14:50 Globulin 3.4 gm/dL (2.3-3.5) 08/22/18 14:50 Albumin/Globulin Ratio 1.1 (1.1-1.9) 08/22/18 14:50 Patient Name: REX BHAKTA Gender: Female Date of : 1950 Referring Physician: ANU HOOK Organization: [facility] Accession Number: [id number] Requested Date: August 22, 2018 14:36 Report Status: Final Requested Procedure: 1 Procedure Description: Chest,1 View Modality: CR Findings Reporting MD: Gui Pool Fellow MD: Not available Dictation Time: Traffic Clerk: Not available Pickle Solution Maker Date: Study: Single Frontal Radiograph of the Chest. Indication:shortness of breath Comparison: June 06, 2018 Impression: Cardiomegaly with progressive moderate interstitial edema. Underlying pneumonia not excluded. Follow up recommended. No pleural effusion or pneumothorax. No acute osseous abnormality - EKG/XRAY/CT EKG: Sinus, LBBB Comments: left axis deviation, HR 83 Departure - Departure Clinical Impression: Congestive heart failure (CHF) Qualifiers: Heart failure type: unspecified Heart failure chronicity: acute on chronic Qualified Code(s): I50.9 - Heart failure, unspecified Disposition: Admit Patient Condition: Good Departure Forms: ED Discharge - Pt. Copy, Patient Portal Self Enrollment Referrals: Ese Valencia NP [Primary Care Provider] - 1-2 Weeks Home Medications: Ambulatory Orders Diclofenac Sodium [Diclofenac Sodium Dr] 75 mg PO BID 05/27/17 Insulin Lispro [Humalog Kwikpen] 0 units SC ACHS PRN 05/27/17 Losartan Potassium 50 mg PO DAILY 05/27/17 Metformin HCl [Metformin Hydrochloride] 1,000 mg PO BID 05/27/17 Amlodipine Besylate 5 mg PO BEDTIME 03/14/18 Atorvastatin Calcium 40 mg PO BEDTIME 03/14/18 Carvedilol 25 mg PO BID 03/14/18 Chlorthalidone 12.5 mg PO DAILY 03/14/18 Multiple Vitamin [Multivitamins] 1 cap PO DAILY 03/14/18 Naproxen [Naprosyn] 500 mg PO DAILY 03/14/18 Ticagrelor [Brilinta] 90 mg PO BID 03/14/18 Furosemide [Lasix] 20 mg PO DAILY #30 tab 06/06/18 Nitroglycerin Patch 0.2 mg/Hr [Nitro-Dur PATCH 0.2 mg/hour] 1 ea TD Q24H #30 patch 06/06/18 Potassium Chloride [K-Tab] 10 meq PO DAILY #30 tab 06/06/18 Decision To Admit - Decistion To Admit Decision to Admit Reason: Admit from ER Decision to Admit Date: 08/22/18 Decision to Admit Time: 15:43
[2018-08-22] MEDS ORDERED: FUROSEMIDE INJ 40 MG/4 ML VIAL IV ONE (15:08)
[2018-08-22] MEDS ORDERED: NITROGLYCERIN 0.4 MG 25 EA TAB SL ONE (15:08)
--- NOTE | 2018-08-22 16:10 | HP ---
SUPERVISING PHYSICIAN: Manny Marcial MD CHIEF COMPLAINT: Shortness of breath. HISTORY OF PRESENT ILLNESS: This is a 67 year-old female patient who has a presented to the Emergency Room with shortness of breath for about 10 days. She has had ongoing shortness of breath for over a year and was diagnosed several months ago with congestive heart failure. She had previously been a smoker quit several years ago. She also has coronary artery disease and had stent placement several months ago. She started last Tuesday for the most part and she had shortness of breath with coughing. It continued to worsen until the point she had to come in today. In the Emergency Room, her initial vital signs were temperature of 98.2 with a heart rate of 88, blood pressure 145/93, respiratory rate of 30, 02 saturation of 95% on 2 liters nasal cannula. Blood samples were drawn and her WBCs were 9,500 with hemoglobin of 9.1 and hematocrit of 27.5. Her coagulation studies were unremarkable. Sodium 133, potassium 4.1, chloride 97, carbon dioxide 24, BUN 21, creatinine 0.74. Blood glucose was 209, serum osmolality 272.4 with magnesium of 1.5, bilirubin 1.5. Her other liver enzymes were within normal limits. Cardiac enzymes were negative. BNP was 1,510. Urinalysis was unremarkable except for a trace of intact urine blood. Chest x- ray shows cardiomegaly with progressive moderate interstitial edema, underlying with pneumonia not excluded. Followup recommended. No pleural effusion or pneumothorax. No acute osseous abnormalities. She was given 40 mg of Lasix as well as some Nitroglycerin and I was called for hospital admission. PAST MEDICAL HISTORY: 1. Type 2 diabetes mellitus with poor medical compliance. 2. Hyperlipidemia. 3. Chronic anemia. 4. Hypertension. 5. Congestive heart failure with a combined diastolic/systolic etiology. Her last echocardiogram showed an ejection fraction of 29%. It was done several months ago by Dr. Barboza. She was diagnosed with congestive heart failure within the last 6 months 6. Left bundle branch block. 7. Gastroesophageal reflux disease. 8. Chronic knee pain. PAST SURGICAL HISTORY: 1. Appendectomy. 2. Tonsillectomy. 3. Hysterectomy. 4. Cardiac stents in May of 2017. CURRENT MEDICATIONS: 1. Amlodipine. 2. Atorvastatin. 3. Brilinta. 4. Carvedilol. 5. Chlorthalidone. 6. Diclofenac. 7. Humalog insulin per sliding scale. 8. Levemir insulin, although she has been prescribed this but she does not take it. 9. Losartan. 10. Metformin. 11. Naprosyn. 12. Nitroglycerin. 13. Triamcinolone topical ointment. ALLERGIES: NO KNOWN DRUG ALLERGIES. SOCIAL HISTORY: She is . She has three children. She lives in [place]. She quit smoking several years ago. She denies any ETOH or illicit drug use. REVIEW OF SYSTEMS: GENERAL: Negative for fatigue, fever or weight changes. HEENT: Negative for sinus symptoms, ear pain, vision changes or sore throat. RESPIRATORY: Positive for orthopnea, shortness of breath and coughing. Negative for wheezing. CARDIOLOGY: Negative for chest pain, palpitations, tachycardia. GASTROINTESTINAL: Negative for nausea, vomiting, diarrhea, constipation. GENITOURINARY: Positive for dysuria and polyuria. Negative for hematuria. MUSCULOSKELETAL: Negative for arthralgias, myalgias. SKIN: Negative for lesions or rashes. NEUROLOGIC: Negative for dizziness, headaches or seizures. EXTREMITIES: Positive for lower extremity edema. PHYSICAL EXAMINATION: VITAL SIGNS: Temperature 98.2, heart rate 92, blood pressure 142/92, respiratory rate 20, O2 saturation 95% on 2 liters nasal cannula. GENERAL: This is a 67 year-old female patient who is sitting up in her hospital bed. She is in mild respiratory distress. HEENT: Normocephalic and atraumatic. Pupils are equal and reactive. Oropharynx is clear. NECK: Supple without mass. There is no discernible jugular venous distention. RESPIRATORY: Scattered crackles throughout diminished at the bases. CHEST: There is equal rise and fall of the chest with inspiration and expiration. She is somewhat tachypneic and has to speak in short phrases. CARDIOVASCULAR: Regular rate and rhythm. GASTROINTESTINAL: Abdomen is soft, nondistended, non-tender. Bowel sounds are positive. EXTREMITIES: No cyanosis or clubbing. She does have +2 pedal edema bilaterally. NEUROLOGIC: She is awake, alert and oriented times three. Cranial nerves II- XII are grossly intact. SKIN: Warm and dry. LABORATORY: Labs and films are as per the History of Present Illness. ASSESSMENT: 1. Acute exacerbation of congestive heart failure, diastolic and systolic in etiology with an ejection fraction of 29%. Her echocardiogram was recently done by Dr. Barboza, tool and die engineer. She has been diagnosed with congestive heart failure within the last 6 months or so. 2. Diabetes mellitus type 2, poorly controlled. 3. Electrolyte imbalance with hyponatremia, hypomagnesemia and hypochloridemia. 4. Hyperbilirubinemia of unknown source. Her past bilirubins have been normal. 5. History of coronary artery disease with left bundle branch block and multiple stents. 6. GERD. 7. Hyperlipidemia. 8. History of hypertension on beta luma, ARB/calcium channel luma. PLAN: We will admit the patient to the hospital. I have initiated the congestive heart failure guidelines and we will give her IV diuretics overnight. Her home medications have been restarted. Blood sugar checks are scheduled for a.c. and h.s. with Humalog insulin coverage. She has also received some magnesium supplementation as well as some potassium supplementation. Will recheck labs in the morning. She will need to followup with Dr. Barboza. She does have an appointment with him a week from today on August 29, 2018 at his office here in [place]. I have started her on a PPI for ulcer prophylaxis, Lovenox for deep venous thrombosis prophylaxis. She is also on multiple NSAIDS and at her last hospital visit, I did stop her diclofenac. I am not sure why she continues that though is on her medications. She does complain of quite a bit of osteoarthritis. We will continue to follow her closely as needed. [facility][id number] [facility]
[2018-08-22] MEDS ORDERED: MAGNESIUM SULFATE PREMIX 2GM 2 GM in PREMIX BAG 1 BAG IVPB ONE (16:56)
[2018-08-22] MEDS ORDERED: GLUCAGON INJ 1 MG VIAL SUBCU PRN (16:57)
[2018-08-22] MEDS ORDERED: DEXTROSE 50% 25 GM/50 ML SYG IV PRN (16:57)
[2018-08-22] MEDS ORDERED: ONDANSETRON INJ 4 MG/2 ML VIAL IV PRN (17:11)
[2018-08-22] MEDS ORDERED: ACETAMINOPHEN 325 MG TAB PO PRN (17:11)
[2018-08-22] MEDS ORDERED: SODIUM CHLORIDE 0.9% (FLUSH) 10 ML SYG IV PRN (17:11)
[2018-08-22] MEDS ORDERED: NITROGLYCERIN 0.4 MG 25 EA TAB SL PRN (17:11)
[2018-08-22] MEDS ORDERED: TEMAZEPAM 15 MG CAP PO PRN (17:11)
[2018-08-22] MEDS ORDERED: MAGNESIUM SULFATE PREMIX 2GM 50 ML IVPB ONE (17:40)
[2018-08-22] MEDS: IV SET AND CAP CHANGE INJ INJ SCH (20:19)
[2018-08-22] MEDS: SODIUM CHLORIDE 0.9% (FLUSH) 10 ML SYG IV SCH (20:19)
[2018-08-22] MEDS ORDERED: NON-FORMULARY MEDICATION 1 EA MIS (Metformin Hcl [Metformin Hydrochloride] 1,000 MG) PO SCH (21:00)
[2018-08-22] MEDS ORDERED: NON-FORMULARY MEDICATION 1 EA MIS (Atorvastatin Calcium [Atorvastatin Calcium] 40 MG) PO SCH (21:00)
[2018-08-22] MEDS ORDERED: NON-FORMULARY MEDICATION 1 EA MIS (Carvedilol [Carvedilol] 25 MG) PO SCH (21:00)
[2018-08-22] MEDS ORDERED: metFORMIN HCL 500 MG TAB ONE ×2 (21:09→21:25)
[2018-08-22] MEDS ORDERED: ATORVASTATIN 20 MG TAB PO ONE (21:10)
[2018-08-22] MEDS ORDERED: CARVEDILOL 12.5 MG TAB ONE (21:10)
[2018-08-22] MEDS: amLODIPine BESYLATE 5 MG TAB PO SCH (21:25)
[2018-08-22] MEDS: NON-FORMULARY MEDICATION 1 EA MIS (Ticagrelor [Brilinta] 90 MG) PO SCH (21:26)
[2018-08-22] MEDS ORDERED: NITROGLYCERIN 0.2 MG/HR PATCH TD SCH (22:00)
[2018-08-22] MEDS: INSULIN LISPRO 100 UNITS/ML PEN SUBCU SCH (22:15)
[2018-08-22] MEDS: INSULIN DETEMIR 100 UNITS/ML PEN SUBCU SCH (22:15)
[2018-08-23] MEDS ORDERED: IPRATROPIUM/ALBUTEROL 3 ML VIAL NEB ONE (02:08)
--- NOTE | 2018-08-23 07:11 | RAD ---
CHEST, ONE VIEW XR 08/23/2018 CLINICAL HISTORY: Congestive heart failure COMPARISON: 08/22/2018 TECHNIQUE: Two views of the Chest. FINDINGS: Moderate cardiac enlargement. There is pulmonary vascular congestion and mild pulmonary edema. There is mild aortic arch atherosclerosis. No pleural fluid or pneumothorax. Lungs are hyperinflated. Unremarkable thoracic spine. Normal soft tissues. IMPRESSION: 1. Cardiomegaly. Pulmonary vascular congestion with mild edema compatible with congestive heart failure. 2. Lungs are hyperinflated. Electronically signed by: Elisa Almanza DO 08/23/2018 7:07 AM CDT
[2018-08-23] MEDS: INSULIN LISPRO 100 UNITS/ML PEN SUBCU SCH ×4 (07:48→20:54)
[2018-08-23] MEDS ORDERED: FUROSEMIDE 40 MG TAB PO SCH (09:00)
[2018-08-23] MEDS: LOSARTAN POTASSIUM 25 MG TAB PO SCH (09:11)
[2018-08-23] MEDS: NAPROXEN 250 MG TAB PO SCH (09:12)
[2018-08-23] MEDS: metFORMIN HCL 500 MG TAB PO SCH ×2 (09:12→20:55)
[2018-08-23] MEDS: CARVEDILOL 12.5 MG TAB PO SCH ×2 (09:12→20:31)
[2018-08-23] MEDS: CHLORTHALIDONE 25 MG TAB PO SCH (09:14)
[2018-08-23] MEDS: NON-FORMULARY MEDICATION 1 EA MIS (Ticagrelor [Brilinta] 90 MG) PO SCH ×2 (09:15→20:32)
[2018-08-23] MEDS: SODIUM CHLORIDE 0.9% (FLUSH) 10 ML SYG IV SCH ×2 (09:15→20:32)
[2018-08-23] MEDS: FUROSEMIDE INJ 40 MG/4 ML VIAL IV SCH ×2 (09:17→17:23)
[2018-08-23] MEDS ORDERED: MAGNESIUM SULFATE PREMIX 2GM 2 GM in PREMIX BAG 1 BAG IVPB ONE (11:01)
[2018-08-23] MEDS ORDERED: KCL 20MEQ/0.45% NS 1,000 ML IVS PRN (11:04)
[2018-08-23] MEDS ORDERED: KCL 40MEQ/NS 1,000 ML IVS PRN (11:05)
[2018-08-23] MEDS ORDERED: BUMETANIDE 0.25 MG/ML VIAL IV ONE (11:12)
[2018-08-23] MEDS ORDERED: NITROGLYCERIN 0.4 MG/HR PATCH TOP SCH (11:30)
[2018-08-23] MEDS ORDERED: MAGNESIUM SULFATE PREMIX 2GM 50 ML IVPB ONE (11:32)
[2018-08-23] MEDS: ENOXAPARIN SODIUM 40 MG/0.4 ML SYG SUBCU SCH (13:52)
--- NOTE | 2018-08-23 14:37 | PN ---
SUPERVISING PHYSICIAN: Manny Marcial MD DATE: 08/23/18 SUBJECTIVE: The patient notes she is a little bit weaker today. It feels like her breathing has not changed much. She denies any chest pains, but certainly with any exertional effort develops shortness of breath. I did discuss the findings on her x-ray this morning which showed she had been without any significant change overnight and that we would go ahead and do a Colmenares placement to monitor I&Os closely as well as to be more aggressive with management with diuresis and Lasix. She is in agreement with the plan of care. OBJECTIVE: VITAL SIGNS: Temperature 98.1. Pulse 82. Blood pressure 138/78. Respirations 92%on 3 liters nasal cannula at rest. GENERAL: The patient is ill appearing. She appears tired, but in no acute distress. She is alert. CHEST: Lung sounds are diminished throughout with some mild rales noted bilaterally in the bases. No rhonchi or wheezes noted. HEART: Regular rate and rhythm. No appreciable JVD noted. ABDOMEN: Soft, nontender. Positive bowel sounds. EXTREMITIES: Continued 2+ bilateral edema. No cyanosis, clubbing. NEUROLOGIC: Alert and oriented times three. LABORATORY: Hemoglobin 8.7, hematocrit 26.3, platelet count 341,000, no left shift on differential. Chemistries show sodium down to 130 with carbon dioxide 95, anion gap remains normal. BUN slightly elevated at 22 with creatinine 0.71. Blood sugars remain elevated between 159 to 209. Magnesium low at 1.3. Bilirubin up slightly, but down from admission of 1.5, 1.1 currently. RADIOLOGY: Chest x-ray per radiologic interpretation shows cardiomegaly with pulmonary vascular congestion with mild edema compatible with congestive failure. Lungs were hyperinflated. ASSESSMENT: 1. Acute decompensated heart failure, likely combined diastolic and systolic etiology with reported ejection fraction of 29% with no current report available. We will get an updated echocardiogram to further evaluate. 2. Diabetes mellitus, type 2, poorly controlled. 3. Persistent electrolyte imbalance with hyponatremia, hypomagnesemia and hypochloremia probably due to chronic Thiazide dieretic and exacerbated by # 1. 4. Hyperbilirubinemia, uncertain source, but levels returning to normal. 5. History of coronary artery disease with left bundle branch block and multiple stents. 6. Gastroesophageal reflux disease. 7. Hyperlipidemia. 8. History of hypertension on beta luma, ARB/calcium channel luma. PLAN: We will get a bedside echocardiogram and Doppler study to further assess her cardiac function. We will go ahead and place a Colmenares because I am going to get a little bit more aggressive with her diuresis. We will initially try 40 mg of Lasix and we will 1 Bumex in between and do Lasix 40 mg IV q.12h. We will go ahead and replace her magnesium and monitor her electrolytes closely. We will await findings on echocardiogram. I have also put her on a fluid restriction of 1200 mL per 24 hours. She is on Lovenox for DVT prophylaxis. Until we can transition her to outpatient management, we will continue to monitor and treat as needed. [facility][id number] [facility]
[2018-08-23] MEDS: ATORVASTATIN 20 MG TAB PO SCH (20:31)
[2018-08-23] MEDS: amLODIPine BESYLATE 5 MG TAB PO SCH (20:31)
[2018-08-23] MEDS: INSULIN DETEMIR 100 UNITS/ML PEN SUBCU SCH (20:53)
--- NOTE | 2018-08-24 07:26 | RAD ---
EXAM DESCRIPTION: Chest,2 Views CLINICAL HISTORY: CHF exacerbation COMPARISON: August 23, 2018 FINDINGS: Two-view chest x-ray shows enlargement of the cardiac silhouette with mild prominence of the pulmonary vascularity similar to previous exam. Lungs are normally aerated with chronic appearing diffuse increased interstitial markings. No acute infiltrate or consolidation. Moderate disc degenerative changes of the spine. IMPRESSION: Stable mild cardiomegaly chronic interstitial fibrotic changes similar to previous exam versus mild pulmonary vascular congestion. No new infiltrates or consolidations are seen. Electronically signed by: Kurt Castillo MD 08/24/2018 7:23 AM CDT
[2018-08-24] MEDS: INSULIN LISPRO 100 UNITS/ML PEN SUBCU SCH ×4 (08:05→21:00)
[2018-08-24] MEDS ORDERED: NITROGLYCERIN 0.4 MG/HR PATCH TOP SCH (09:00)
[2018-08-24] MEDS: CARVEDILOL 12.5 MG TAB PO SCH ×2 (10:12→20:59)
[2018-08-24] MEDS: NAPROXEN 250 MG TAB PO SCH (10:12)
[2018-08-24] MEDS: LOSARTAN POTASSIUM 25 MG TAB PO SCH (10:12)
[2018-08-24] MEDS: metFORMIN HCL 500 MG TAB PO SCH ×2 (10:12→20:59)
[2018-08-24] MEDS: CHLORTHALIDONE 25 MG TAB PO SCH (10:13)
[2018-08-24] MEDS: FUROSEMIDE INJ 40 MG/4 ML VIAL IV SCH ×2 (10:13→17:10)
[2018-08-24] MEDS: ENOXAPARIN SODIUM 40 MG/0.4 ML SYG SUBCU SCH (10:13)
[2018-08-24] MEDS: NON-FORMULARY MEDICATION 1 EA MIS (Ticagrelor [Brilinta] 90 MG) PO SCH ×2 (10:14→21:02)
[2018-08-24] MEDS: SODIUM CHLORIDE 0.9% (FLUSH) 10 ML SYG IV SCH ×2 (10:14→21:02)
--- NOTE | 2018-08-24 13:22 | PN ---
SUPERVISING PHYSICIAN: Manny Marcial MD DATE: 08/24/18 SUBJECTIVE: The patient notes she is breathing a little easier this morning. She has had no chest pains. She is tolerating current treatment. OBJECTIVE: VITAL SIGNS: Temperature 98. Pulse 68. Blood pressure 109/66. [id number]. Saturation 95% on 3 liters nasal cannula at rest. I&Os show negative balance of 1790. Weight 93.2 kg, down from admission of 96.4. GENERAL: The patient is resting comfortably. She appears to be in no apparent distress. She is alert. CHEST: Lung sounds are improved today with no rales, just diminished towards the bases. HEART: Regular rate and rhythm. ABDOMEN: Soft, nontender. Positive bowel sounds. EXTREMITIES: No edema. NEUROLOGIC: Alert and oriented times three. LABORATORY: Hemoglobin is down again from yesterday at 8.5, hematocrit 25.6. Platelet count 330,000. Differential is without a left shift. Chemistries show persistent low sodium at 130 with BUN 28, creatinine 0.79, potassium 3.9, calcium 8.9. Blood sugars range between 149 and 192. RADIOLOGY: Chest x-ray, two-view, shows stable mild cardiomegaly with chronic interstitial fibrotic changes similar to previous exam versus mild pulmonary vascular congestion. No new infiltrates or consolidations are seen. Echocardiogram with Doppler study read by Dr. Hendricks shows mild left ventricular dilation with abnormal diastolic function with elevated resting filling pressure, mild concentric left ventricular hypertrophy. Left ventricular ejection fraction estimated by 2D at 65% to 70%. Mild left atrial enlargement. Mildly calcification of aortic valve. Moderate to severe tricuspid regurgitation. Moderate elevated estimated right ventricular systolic pressure. ASSESSMENT: 1. Acute decompensated heart failure, with a preserved ejection fraction with echocardiogram done yesterday showing ejection fraction of 65% to 70%, but with a grade 2 diastolic dysfunction, responding to diuresis and fluid restrictions. 2. Diabetes mellitus, type 2, fair control. 3. Persistent hyponatremia, probably due chronic thiazide diuretic. 4. Hyperbilirubinemia, returning to baseline levels, likely due to exacerbation of #1. 5. History of coronary artery disease with left bundle branch block and multiple stents. 6. Gastroesophageal reflux disease. 7. Hyperlipidemia. 8. History of hypertension on beta luma, ARB/calcium channel luma. PLAN: We will continue diuresis today with Lasix 40 mg b.i.d. IV. We will get her Colmenares out. I have encouraged her to ambulate. She is already on home O2, so there is no need for reassessment. Given that she does show a preserved ejection fraction and there is a diastolic failure, we will go ahead and stop her nitro patch and continue to monitor. We anticipate hopefully being able to discharge tomorrow. Until then, we will continue to monitor and treat as needed. [facility][id number] [facility]
[2018-08-24] MEDS ORDERED: REMOVE OLD PATCH TOP SCH (21:00)
[2018-08-24] MEDS: INSULIN DETEMIR 100 UNITS/ML PEN SUBCU SCH (21:00)
[2018-08-24] MEDS: ATORVASTATIN 20 MG TAB PO SCH (21:01)
[2018-08-24] MEDS: amLODIPine BESYLATE 5 MG TAB PO SCH (21:01)
--- NOTE | 2018-08-25 07:16 | RAD ---
EXAM DESCRIPTION: Chest,2 Views CLINICAL HISTORY: CHF exacerbation COMPARISON: August 24, 2018 FINDINGS: The cardiac silhouette is enlarged but stable from the prior study. Mediastinal contours are otherwise unremarkable. The central bronchovascular markings are indistinct but unchanged from yesterday. No airspace consolidation or pleural effusion. There is no pneumothorax or acute fracture. IMPRESSION: Stable cardiomegaly with possible mild central pulmonary vascular congestion, all unchanged from yesterday. Electronically signed by: Adam Monaco MD 08/25/2018 7:14 AM CDT
[2018-08-25] MEDS: INSULIN LISPRO 100 UNITS/ML PEN SUBCU SCH ×4 (07:38→21:19)
[2018-08-25] MEDS: POTASSIUM CHLORIDE 10 MEQ TAB PO SCH (07:43)
[2018-08-25] MEDS ORDERED: FUROSEMIDE 40 MG TAB PO SCH (09:00)
[2018-08-25] MEDS: LOSARTAN POTASSIUM 25 MG TAB PO SCH (09:47)
[2018-08-25] MEDS: metFORMIN HCL 500 MG TAB PO SCH ×2 (09:47→20:40)
[2018-08-25] MEDS: NAPROXEN 250 MG TAB PO SCH (09:47)
[2018-08-25] MEDS: ENOXAPARIN SODIUM 40 MG/0.4 ML SYG SUBCU SCH (09:48)
[2018-08-25] MEDS: SODIUM CHLORIDE 0.9% (FLUSH) 10 ML SYG IV SCH ×2 (09:48→20:41)
[2018-08-25] MEDS: NON-FORMULARY MEDICATION 1 EA MIS (Ticagrelor [Brilinta] 90 MG) PO SCH ×3 (09:48→20:43)
[2018-08-25] MEDS: CARVEDILOL 12.5 MG TAB PO SCH ×2 (09:48→20:40)
[2018-08-25] MEDS: FUROSEMIDE 40 MG TAB PO SCH (16:54)
[2018-08-25] MEDS: ATORVASTATIN 20 MG TAB PO SCH (20:41)
[2018-08-25] MEDS: amLODIPine BESYLATE 5 MG TAB PO SCH (20:41)
[2018-08-25] MEDS: IV SET AND CAP CHANGE INJ INJ SCH (20:43)
--- NOTE | 2018-08-25 21:19 | PN ---
DATE: 08/25/18 SUPERVISING PHYSICIAN: Manny Marcial M.D. SUBJECTIVE: The patient is sitting up on the side of her bed. She still gets somewhat short of breath with exertion but it has improved. She said she does not feel that fullness in her chest. Denies chest pain, nausea, vomiting, diarrhea. We discussed her discharge plan scheduled for tomorrow if she clinically improves and I have restarted all of her oral medications. OBJECTIVE: VITAL SIGNS: Temperature 98.1, heart rate 75, blood pressure 120/76, respiratory rate 16, O2 sat 99% on 2.5 liters nasal cannula. RESPIRATORY: Essentially clear to auscultation bilaterally. There are a few scattered crackles. There is no rhonchi. Her crackles are very mild. CARDIAC: Regular rate and rhythm. GASTROINTESTINAL: Abdomen is soft, nondistended, non-tender. Bowel sounds are positive. EXTREMITIES: No clubbing, cyanosis or edema. NEUROLOGIC: She is awake, alert and oriented times three. LABORATORY: Hemoglobin 9.2, hematocrit 27.7. Sodium 130, potassium 3.9, chloride 91, BUN 30, creatinine 0.60, magnesium 1.5. Blood sugars have run between 144 and 211. Chest x-ray shows stable cardiomegaly with possible mild central pulmonary vascular congestion all unchanged from yesterday. All other labs and films have been reviewed via the EMR. ASSESSMENT: 1. Acute decompensated heart failure, with a preserved ejection fraction with echocardiogram done yesterday showing ejection fraction of 65% to 70%, but with a grade 2 diastolic dysfunction, responding to diuresis and fluid restrictions. 2. Diabetes mellitus, type 2, fair control. 3. Persistent hyponatremia, probably due chronic thiazide diuretic. 4. Hyperbilirubinemia, returning to baseline levels, likely due to exacerbation of #1. 5. History of coronary artery disease with left bundle branch block and multiple stents. 6. Gastroesophageal reflux disease. 7. Hyperlipidemia. 8. History of hypertension on beta luma, ARB/calcium channel luma. PLAN: We will continue present supportive care. All of her IV Lasix has been discontinued. Her oral diuretics have been restarted. She has home oxygen so she will have that at discharge. I have given her some magnesium supplementation today. Will recheck her labs in the morning. She will need to followup with Sabrina Valencia at discharge. She also has an appointment with Dr. Barboza, her wholesale account manager, next Tuesday, 08/29 here in [place]. Will continue to monitor closely and follow as needed. #[id number] [facility]
[2018-08-25] MEDS: INSULIN DETEMIR 100 UNITS/ML PEN SUBCU SCH (21:21)
[2018-08-26] MEDS: INSULIN LISPRO 100 UNITS/ML PEN SUBCU SCH ×2 (07:04→13:21)
[2018-08-26] MEDS: POTASSIUM CHLORIDE 10 MEQ TAB PO SCH (07:21)
[2018-08-26] MEDS: metFORMIN HCL 500 MG TAB PO SCH (09:20)
[2018-08-26] MEDS: ENOXAPARIN SODIUM 40 MG/0.4 ML SYG SUBCU SCH (09:20)
[2018-08-26] MEDS: CARVEDILOL 12.5 MG TAB PO SCH (09:21)
[2018-08-26] MEDS: LOSARTAN POTASSIUM 25 MG TAB PO SCH (09:21)
[2018-08-26] MEDS: NAPROXEN 250 MG TAB PO SCH (09:21)
[2018-08-26] MEDS: FUROSEMIDE 40 MG TAB PO SCH (09:21)
[2018-08-26] MEDS: NON-FORMULARY MEDICATION 1 EA MIS (Ticagrelor [Brilinta] 90 MG) PO SCH (09:22)
[2018-08-26] MEDS: SODIUM CHLORIDE 0.9% (FLUSH) 10 ML SYG IV SCH (09:22)
[2018-08-26 11:48] VITALS: BP 135/88; TEMP 98; O2SAT 94
--- NOTE | 2018-08-29 16:01 | DS ---
SUPERVISING PHYSICIAN: Arnold Holman MD DISCHARGE DIAGNOSIS: 1. Acute decompensated heart failure, with a preserved ejection fraction with echocardiogram done yesterday showing ejection fraction of 65% to 70%, but with a grade 2 diastolic dysfunction, responding to diuresis and fluid restrictions. 2. Diabetes mellitus, type 2, fair control. 3. Persistent hyponatremia, probably due chronic thiazide diuretic. 4. Hyperbilirubinemia, returning to baseline levels, likely due to exacerbation of #1. 5. History of coronary artery disease with left bundle branch block and multiple stents. 6. Gastroesophageal reflux disease. 7. Hyperlipidemia. 8. History of hypertension on beta luma, ARB/calcium channel luma. HISTORY OF PRESENT ILLNESS: This is a 67-year-old female patient who has a presented to the Emergency Room with shortness of breath for about 10 days. She has had ongoing shortness of breath for over a year and was diagnosed several months ago with congestive heart failure. She had previously been a smoker and quit several years ago. She also has coronary artery disease that required stent placement several months ago. The Tuesday prior to her admission, she had shortness of breath with coughing. It continued to worsen until the point she had to come to her Emergency Room. Her initial vital signs were temperature of 98.2 with a heart rate of 88, blood pressure 145/93, respiratory rate of 30, O2 saturation of 95% on 2 liters nasal cannula. Labs were drawn and her WBCs were 9,500 with hemoglobin of 9.1 and hematocrit of 27.5. Her coagulation studies were unremarkable. Sodium 133, potassium 4.1, chloride 97, carbon dioxide 24, BUN 21, creatinine 0.74. Blood glucose was 209, serum osmolality 272.4 with magnesium of 1.5, bilirubin 1.5. Her other liver enzymes were within normal limits. Cardiac enzymes were negative. BNP was 1,510. Urinalysis was unremarkable except for a trace of intact urine blood. Chest x- ray showed cardiomegaly with progressive moderate interstitial edema, underlying with pneumonia not excluded. Followup recommended. No pleural effusion or pneumothorax. No acute osseous abnormalities. She was given 40 mg of Lasix in the Emergency Room as well as some Nitroglycerin and I was called for hospital admission. HOSPITAL COURSE: She was admitted to the hospital and congestive heart failure guidelines initiated. She was given IV diuretics over the next several days. Blood sugars were checked a.c. and h.s. with Humalog insulin sliding scale coverage. She also had magnesium supplementation as well as potassium supplementation. She was put on Lovenox for DVT prophylaxis and proton pump inhibitor for ulcer prophylaxis. Over the next two days, she diuresed well. An echocardiogram was done. She did have a Colmenares catheter placed initially to be more aggressive with her diuretics. She also received some Bumex. Again, her magnesium was replaced. She was also put on fluid restriction of 1200 mL per 24 hours. She finally stabilized and was transitioned to her oral diuretics. They were also increased as she normally just took 20 mg daily. They were increased to 20 mg b.i.d. She may need to go up further at some point and will need an evaluation by Dr. Barboza. She is on an ARB as well as a beta luma. She is also on chlorthalidone in addition to the furosemide. She will be discharged home today in stable condition. LABORATORY: Her blood sugars ran between 143 and 211. She remains hyponatremic, but her sodium has been stable between 129 and 130. She continues with hypomagnesemia and she received some supplementation prior to discharge. RADIOLOGY: Final chest x-ray showed stable cardiomegaly with possible mild central pulmonary vascular congestion, unchanged from yesterday. ECHOCARDIOGRAM REPORT: 1) Mild left ventricular dilatation. 2) Normal diastolic function with evidence of elevated resting filling pressures. 3) Mild concentric left ventricular hypertrophy. 4) Left ventricular ejection fraction estimated by 2D at 65% to 70%. 5) Mild left atrial enlargement. 6) Mild calcification of the aortic valve. 7) Moderate to severe tricuspid valve regurgitation. 8) Moderately elevated estimated right ventricular systolic pressure. DISCHARGE PLAN: The patient will be discharged home in stable condition. She is to resume her previous cardiac diet and increase her activity as tolerated. She is to followup with Ese Valencia, her primary care provider, within one to two weeks. It is recommended that she have a chest x-ray and a BNP plus magnesium at that appointment. She also needs a followup with Dr. Barboza, her life science taxonomist. She is to resume her previous medications, but I have increased her furosemide to 20 mg b.i.d. She is to return to the hospital or call Ese Valencia's office for any problems or complications. DISCHARGE MEDICATIONS: 1. Losartan. 2. Metformin. 3. Humalog insulin. 4. Baclofen. 5. Carvedilol. 6. Atorvastatin. 7. Amlodipine. 8. Brilinta. 9. Chlorthalidone. 10. Multivitamins. 11. Nitroglycerin patch. 12. Levemir insulin. 13. Furosemide. #[id number] [facility]
== END 2018-08-26 13:00 | disposition home or self-care (01) | DRG 292 ==
LOC: ER 14:23 → MS 16:08 → OBSVTOIN 16:08
PROVIDERS: ADMIT Nurse Practitioner Acute Care; ATTEND Nurse Practitioner Acute Care
DX: I11.0 Hypertensive heart disease with heart failure (principal); E87.1 Hypo-osmolality and hyponatremia; I50.33 Acute on chronic diastolic (congestive) heart failure; T50.2X5A Adverse effect of carbonic-anhydrase inhibitors, benzothiadiazides and other diuretics, initial encounter; J44.9 Chronic obstructive pulmonary disease, unspecified; E11.9 Type 2 diabetes mellitus without complications; I25.10 Atherosclerotic heart disease of native coronary artery without angina pectoris; K21.9 Gastro-esophageal reflux disease without esophagitis; E78.5 Hyperlipidemia, unspecified; E80.6 Other disorders of bilirubin metabolism; E83.42 Hypomagnesemia; I07.1 Rheumatic tricuspid insufficiency; D64.9 Anemia, unspecified; G89.29 Other chronic pain; I44.7 Left bundle-branch block, unspecified; M25.569 Pain in unspecified knee; Z95.5 Presence of coronary angioplasty implant and graft; Z79.4 Long term (current) use of insulin; Z79.1 Long term (current) use of non-steroidal anti-inflammatories (NSAID); Z87.891 Personal history of nicotine dependence; Z79.899 Other long term (current) drug therapy; Y92.009 Unspecified place in unspecified non-institutional (private) residence as the place of occurrence of the external cause

== ENCOUNTER → 2018-08-30 | Outpatient (CLI) | payer MEDICARE, MEDICAID ==
--- NOTE | 2018-08-30 16:22 | RAD ---
EXAM DESCRIPTION: Chest,2 Views CLINICAL HISTORY: Shortness of breath COMPARISON: Previous study August 25, 2018 TECHNIQUE: PA/lateral FINDINGS: Heart is large with mildly increased pulmonary vascularity. No pleural effusion or pneumothorax. Lungs are clear with no consolidating infiltrate. Lateral view shows intact sternum and T-spine. IMPRESSION: Large heart with increased vascularity. Electronically signed by: Cem Marcelino MD 08/30/2018 4:20 PM CDT
== END ==
LOC: LAB.O 15:18
PROVIDERS: ATTEND Nurse Practitioner Family
DX: R06.02 Shortness of breath (principal)

== ENCOUNTER → 2018-10-02 | Outpatient (CLI) | payer MEDICARE, MEDICAID | LOC: LAB.O 08:36 | PROVIDERS: ATTEND Internal Medicine Cardiovascular Disease | DX: I50.22 Chronic systolic (congestive) heart failure (principal) ==

== ENCOUNTER → 2018-10-17 | Outpatient (CLI) | payer MEDICARE, MEDICAID ==
--- NOTE | 2018-10-19 11:37 | MAM ---
EXAM DESCRIPTION: 3D Screening BILATERAL : Digital Mammography. CLINICAL HISTORY: 67 years Female ANNUAL SCREENING . No complaints. No personal history of breast cancer. Remote family history of breast cancer. Childbirth. Postmenopausal. No HRT. Lifetime risk of developing breast cancer (Tyrer-Cuzick model)(%): 3.5. COMPARISON: 2-D digital screening bilateral mammography 08/12/2016. TECHNIQUE: Bilateral CC and MLO projection full-field images, digital tomosynthesis mammographic technique. Bilateral digital 2-D full-field MLO images. CAD not available for tomosynthesis or 2-D images. FINDINGS: The breast parenchymal density pattern is: Scattered areas of fibroglandular density. No skin thickening or nipple retraction. Bilateral solitary microcalcifications and bilateral vascular calcifications. Bilateral axillary lymph nodes. No new focal, stellate mass or density, focal asymmetry , and no suspicious microcalcifications bilaterally. Stable mammograms compared to prior study. Taking into account, differences in mammographic technique. IMPRESSION: Benign exam. BIRAD CATEGORY: 2 BENIGN FINDINGS. RECOMMENDATIONS: FOLLOW UP: Routine digital bilateral mammographic screening, one year interval from September 2018. Written communication explaining the IMPRESSION and follow-up, will be mailed to the patient and referring health care provider. According to the [employer], yearly mammograms are recommended starting at age 40 and continuing as long as a woman is in good health. Any breast change noted on a breast self-exam should be reported promptly to the patient's healthcare provider. Breast MRI is recommended for women with an approximately 20-25% or greater lifetime risk of breast cancer, including women with a strong family history of breast or ovarian cancer and women who have been treated for Hodgkin's disease. A negative mammographic report should not delay tissue diagnosis in patients with significant clinical history or physical findings. Extremely dense breast tissue limits the sensitivity of digital mammography. Electronically signed by: Jules Zhang MD 10/19/2018 11:35 AM CDT
== END ==
LOC: MAMMO 09:00
PROVIDERS: ATTEND Nurse Practitioner Family
DX: Z12.31 Encounter for screening mammogram for malignant neoplasm of breast (principal)

== ENCOUNTER → 2018-10-29 | Outpatient (CLI) | payer MEDICARE, MEDICAID | LOC: YCFC.O 13:16 | PROVIDERS: ATTEND Nurse Practitioner Family | DX: M79.672 Pain in left foot (principal); R60.0 Localized edema; I50.9 Heart failure, unspecified; E11.69 Type 2 diabetes mellitus with other specified complication ==

== ENCOUNTER → 2018-12-11 | Outpatient (CLI) | payer MEDICARE, MEDICAID | LOC: YCFC.O 09:50 | PROVIDERS: ATTEND Nurse Practitioner Family | DX: N39.0 Urinary tract infection, site not specified (principal) ==

== ENCOUNTER → 2019-08-09 | Outpatient (CLI) | payer MEDICARE, MEDICAID | LOC: LAB.O 09:13 | PROVIDERS: ATTEND Nurse Practitioner Family | DX: Z00.01 Encounter for general adult medical examination with abnormal findings (principal) ==

== ENCOUNTER → 2019-08-17 | Outpatient (CLI) | payer MEDICARE, MEDICAID | LOC: LAB.O 08:13 | PROVIDERS: ATTEND Internal Medicine Cardiovascular Disease | DX: Z01.818 Encounter for other preprocedural examination (principal) ==